=== PATIENT | female | born 1950 | race Caucasian/White ===

== ENCOUNTER → 2024-09-18 | Outpatient (CLI) | payer MEDICARE, SELFPAY ==
--- NOTE | 2024-09-18 12:00 | XR_ITS ---
Examination: CT abdomen and pelvis without contrast. Coronal 3-D reconstructions. Sagittal 2-D reconstructions. Date and time of exam:September 18, 2024 at 1214 hours INDICATIONS: History right flank pain with dysuria beginning 2 weeks ago CTDI: vol (mGy): 6.78 DLP: (mGycm): 296 Technique: Axial images of the abdomen have been obtained, 3 mm slice thickness Intravenous contrast material has not been administered. Low dose protocols were performed. One or more of the following dose reduction techniques were used; automated exposure control, adjustment of the mA and/or KV according to patient size, use of iterative reconstruction technique. Findings: No focal liver or splenic lesions Absent gallbladder No pancreatic mass 19 mm fat-containing left adrenal adenoma Upper pole right renal cyst 30 mm Bilateral multiple 1 to 2 mm renal calculi Severe scarring right kidney No hydronephrosis or ureteral calculi 10 mm right paraumbilical hernia defect No bowel obstruction Normal appendix Colonic diverticulosis, no diverticulitis No bladder mass or bladder calculi Grade 2 anterolisthesis L4 on L5 with advanced degenerative disc disease at this level IMPRESSION: Multiple bilateral nonobstructing renal calculi Severe scarring right kidney No hydronephrosis or ureteral calculi
== END | disposition home or self-care (01) ==
DX: N20.0 Calculus of kidney (principal); N28.89 Other specified disorders of kidney and ureter
CPT/HCPCS: 74176

== ENCOUNTER → 2024-09-30 | Outpatient (CLI) | payer MEDICARE, SELFPAY ==
[2024-09-30 10:11] LABS: Basophils # (Auto) 0.1 Thou/mm3 (0.0-0.2); Basophils % (Auto) 1 % (0-2.5); Eosinophils # (Auto) 0.2 Thou/mm3 (0.0-0.5); Eosinophils % (Auto) 3 % (0-10); Hematocrit 35.8 % (36.0-46.0); Hemoglobin 11.1 g/dL (12.0-16.0); Immature Granulocytes % (Auto) 0 % (0-0); Immature Granulocytes Auto 0.02 Thou/mm3 (0.00-0.00); Lymphocytes # (Auto) 1.1 Thou/mm3 (1.0-4.8); Lymphocytes % (Auto) 19 % (10-50); Mean Corpuscular Hemoglobin 27.2 pg (25.0-35.0); Mean Corpuscular Volume 88 fL (80-100); Monocytes # (Auto) 0.5 Thou/mm3 (0.0-0.8); Monocytes % (Auto) 8 % (0-12); Neutrophils # (Auto) 4.1 Thou/mm3 (1.8-7.7); Neutrophils % (Auto) 69 % (37-80); Nucleated Red Blood Cell % 0 /100 WBC (0); Platelet Count 252 Thou/mm3 (140-440); RDW Standard Deviation 51.4 fL (36.4-46.3); Red Blood Count 4.08 Miln/mm3 (4.00-5.20)
[2024-09-30 10:36] LABS: Alanine Aminotransferase 11 U/L (10-49); Albumin, Serum 4.6 gm/dL (3.4-4.8); Alkaline Phosphatase 94 U/L (46-116); Anion Gap 7 (7-16); Aspartate Amino Transferase 16 U/L (0-34); BUN/Creatinine Ratio 29 Ratio (12-20); Bilirubin,Total 0.4 mg/dL (0.3-1.2); Blood Urea Nitrogen 20 mg/dL (9-23); Calcium 9.5 mg/dL (8.3-10.6); Calcium (Corrected) 9.5 mg/dL (8.5-10.1); Carbon Dioxide 32.1 mMol/L (20.0-31.0); Chloride 103 mMol/L (98-107); Creatinine (Component) 0.7 mg/dL (0.6-1.3); Globulin 2.3 gm/dL (2.3-3.5); Glucose 101 mg/dL (74-106); Osmolality,Calculated 285 (275-295); Potassium 3.8 mMol/L (3.4-5.1); Sodium 142 mMol/L (136-145); Total Protein 6.9 gm/dL (5.7-8.2); eGFR > 60 See Note
== END | disposition home or self-care (01) ==
PROVIDERS: PCP Radiology Radiation Oncology; Referring Provider Radiology Radiation Oncology; Visit Provider Radiology Radiation Oncology
DX: C34.12 Malignant neoplasm of upper lobe, left bronchus or lung (principal)
CPT/HCPCS: 36415; 80053; 85025

== ENCOUNTER 2025-02-03 17:16 | Inpatient (IN) | payer MEDICARE, SELFPAY ==
[2025-02-03] VITALS (11 sets, daily range): BP systolic 119–133; BP diastolic 60–78; PULSE 83–135; RESP 20–38; TEMP 36.6–37; O2SAT 93–100; BMI 24.6; BMI 25.2
--- NOTE | 2025-02-03 17:31 | XR_ITS ---
Examination: AP chest single view Technique one AP portable upright chest single view Exam date and time: February 03, 2025 at 1809 hrs. Indications: Shortness of breath chest pain today. Findings: Mild prominence left ventricle Prominent vascular congestion Perihilar basilar septal edema Consider superimposed pneumonia left upper lobe Prominent osteopenia Impression: Mild CHF Pneumonia left upper lobe
--- NOTE | 2025-02-03 17:31 | EKG_ITS ---
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
--- NOTE | 2025-02-03 17:32 | EDNOTE_ITS ---
ED General RME/HPI General Chief complaint: Shortness of Breath/Dyspnea Stated complaint: SOB Time Seen by Provider: 02/03/25 17:30 Arrival date/time: 02/03/25 17:16 CC: Shortness of breath HPI patient presents to the ER via EMS reports shortness of breath for several days. The patient is 88% on 2 L nasal, which she wears 06/05. Patient is pursed lip breathing speaking in 5-6 word sentences and tachypneic. Denies chest pain Related Data Allergies Allergy/AdvReac Type Severity Reaction Status Date / Time cefaclor Allergy Verified 02/03/25 17:28 prednisone Allergy Verified 02/03/25 17:28 Review of Systems Review of Systems Narrative Review of Systems: GEN: No fever, no chills, no weight loss EYES: No discharge, no visual changes, no pain HEENT: No ear pain, no congestion, no sore throat PULM: + shortness of breath, no cough, no congestion CV: No chest pain, no dyspnea on exertion, no palpitations GI: No nausea, no vomiting, no diarrhea, no pain, no constipation : No frequency, no urgency, no dysuria MUSC/SKEL: No joint pain, no back pain SKIN: No rash PSYCH: No hallucinations, no depression HEME/LYMPH: No easy bleeding or bruising tendencies NEURO: No weakness, no headache ED Exam Narrative Physical exam: [General: Frail, but not deconditioned. In moderate discomfort not in any acute distress Head normocephalic HEENT: Within acceptable limits Neck is supple nontender Chest equal chest rise nontender to palpation Respiratory: Tachypneic, poor inspiratory effort audible expiratory wheezing. Pursed lip breathing. CV: Rate rhythm is regular, tachycardia no murmurs rubs or clicks Abdomen is soft nontender no masses positive bowel sounds all 4 quadrants Back: No CVA tenderness no spinous process tenderness from cervical spine thoracic and lumbar spine Skin: Intact no petechiae rash induration ulceration or crepitus Extremities: Moving all extremity against resistance cap refill less than 2 seconds neurosensory intact Neuro: Awake alert oriented x3 Glascow coma 15 no focal deficits] Course Course Course Narrative: Reassessment of this patient at 1930, the patient continues to be pursed lip breathing after hour-long SVN but states her breathing is easier . Patient continues to be tachycardic in the 1 teens. Given the pneumonia patient started on antibiotics. Patient's case discussed with Dr. [place] resident for Dr. strauss who agrees to accept the patient for admission. Quality Measures none Orders Category Date Time Status Bedside COVID-19 Antigen Test NOW Care 02/03/25 19:41 Active COVID-19 Screening Questionnaire NOW Care 02/03/25 19:48 Completed Decision to Admit X1 Care 02/03/25 19:48 Completed EKG (ED ONLY) *Do not use* NOW Care 02/03/25 17:31 Completed EKG (ED ONLY) *Do not use* NOW Care 02/03/25 19:44 Active EKG (ED Only) Stat Exams 02/03/25 17:31 Draft EKG (ED Only) Stat Exams 02/03/25 19:44 Draft XR chest 1V Stat Exams 02/03/25 17:31 Completed ABG [Arterial Blood Gas] Stat Lab 02/03/25 19:59 Ordered B-Type Natriuretic Peptide Stat Lab 02/03/25 17:59 Completed CBC Stat Lab 02/03/25 17:59 Completed Comprehensive Metabolic Panel Stat Lab 02/03/25 17:59 Completed Drug Screen,Urine Stat Lab 02/03/25 19:37 Received LDH (Lactate Dehydrogenase) Stat Lab 02/03/25 17:59 Completed Magnesium Stat Lab 02/03/25 17:59 Completed Partial Thromboplastin Time Stat Lab 02/03/25 17:59 Completed Prothrombin Time with INR Stat Lab 02/03/25 17:59 Completed Troponin I Stat Lab 02/03/25 17:59 Completed Urinalysis Stat Lab 02/03/25 19:39 Received ALBUTEROL RT 3ml [Proventil Rt 3ml] Med 02/03/25 17:31 Discontinued 10 mg INH X1 ONE Albuterol/Ipratr Rt Katalina [Duoneb Rt Katalina] Med 02/03/25 19:58 Discontinued 3 ml INH X1 ONE Doxycycline Inj [Vibramycin Inj] 100 mg Med 02/03/25 18:41 Discontinued Sodium Chloride 0.9% (Pop) [NS 0.9% mini bag] 100 ml IV X1 Levofloxacin/D5w 750Mg Ivpb [Levaquin Ivpb] Med 02/03/25 19:40 Active 750 mg in 150 ml IV X1 Magnesium Sulfate 2 GM Ivpb [Magnesium Sulfate Ivpb] Med 02/03/25 19:59 Active 2 gm in 50 ml IV X1 MethylPREDNISolone.* [SoluMEDROL Inj] Med 02/03/25 17:31 Discontinued 125 mg IVP X1 ONE BiPAP / CPAP NOW RT 02/03/25 19:59 Active Vital Signs Vital signs: Vital Signs Temperature 98.1 F 02/03/25 17:26 Pulse Rate 83 02/03/25 17:26 Respiratory Rate 20 02/03/25 17:26 Blood Pressure 122/76 02/03/25 17:26 Pulse Oximetry (%) 98 02/03/25 17:26 Oxygen Delivery Method Nasal Cannula 02/03/25 17:26 Oxygen Flow Rate 4 02/03/25 17:26 Discharge Plan Plan Patient Disposition: Other Care w/in Hosp ([facility]SE) Patient condition on transfer: Stable Prescriptions/Referrals Referrals: Marnie Mariee MD [Primary Care Provider] - In 1 week Problem List Clinical Impression: Shortness of breath, COPD exacerbation, Pneumonia, Tachycardia Patient/Caregiver Discharge Instructions Print Language: Lithuanian Stand Alone Forms: Elvira Award Info., Patient Portal Info Letter PA/DIRECTOR OF CHANNEL MARKETING Supervising Physician PA/DIRECTOR OF CHANNEL MARKETING Supervising Physician: Pernell Roldan ENP [facility] EKG EKG Interpretation(s): EKG performed at 1818 shows ventricular rate of 107 QRS of 93 QTc of 371 this is sinus tachycardia as P waves are visible. Repeat EKG at 2009 is 7 creasingly poor quality, ventricular rate of 118 QRS of 95 QTc of 368 cannot differentiate between A-fib and sinus tachycardia secondary to extreme marked artifact in all 12 continuous leads. Labs Lab(s) Interpretation(s): CBC shows leukocytosis of 13.2 and H&H 9.4 and 31.2 platelets of 232. Coags within acceptable limits CMP shows CO2 of 32.7 no other electrolyte imbalances no renal impairment no transaminitis or T. bili elevation Mag 2.0 Troponin is negative BNP is Imaging Imaging Interpretation(s): Chest x-ray showed left base pneumonia with cardiomegaly. Medication Administration(s) Medication Administration History Levofloxacin/Dextrose (Levaquin Ivpb) 750 mg in 150 mls @ 100 mls/hr IV X1 ONE Stop: 02/03/25 21:09 Magnesium Sulfate (Magnesium Sulfate Ivpb) 2 gm in 50 mls @ 25 mls/hr IV X1 ONE Stop: 02/03/25 21:58 Discontinued Medications Albuterol (Albuterol Rt 2.5 Mg/3 Ml Nebu) 10 mg INH X1 ONE Stop: 02/03/25 17:32 Last Admin: 02/03/25 17:49 Dose: 10 mg Documented By: LUCILA Albuterol/Ipratropium (Albuterol/Ipratropium (Duoneb) Rt Katalina 3 Ml Nebu) 3 ml INH X1 ONE Stop: 02/03/25 19:59 Doxycycline Hyclate 100 mg/ (Sodium Chloride) 100 mls @ 100 mls/hr IV X1 ONE Stop: 02/03/25 19:40 Last Infusion: 02/03/25 20:11 Dose: Infused Documented By: Admin: 02/03/25 18:48 Dose: 100 mls/hr Documented By: KENNEY Methylprednisolone Sodium Succinate (Methylprednisolone Sod Succ 62.5 Mg/Ml 2ml Vial) 125 mg IVP X1 ONE Stop: 02/03/25 17:32 Last Admin: 02/03/25 18:05 Dose: 125 mg Documented By: KENNEY
[2025-02-03] MEDS: ALBUTEROL RT 2.5 MG/3 ML NEBU 10 MG INH (17:49)
[2025-02-03] MEDS: MethylPREDNISolone SOD SUCC 62.5 MG/ML 2ML VIAL 125 MG IVP (18:05)
[2025-02-03 18:19] LABS: Basophils # (Auto) 0.1 Thou/mm3 (0.0-0.2); Basophils % (Auto) 1 % (0-2.5); Eosinophils # (Auto) 0.1 Thou/mm3 (0.0-0.5); Eosinophils % (Auto) 1 % (0-10); Hematocrit 31.2 % (36.0-46.0); Hemoglobin 9.4 g/dL (12.0-16.0); Immature Granulocytes % (Auto) 1 % (0-0); Immature Granulocytes Auto 0.14 Thou/mm3 (0.00-0.00); Lymphocytes # (Auto) 0.9 Thou/mm3 (1.0-4.8); Lymphocytes % (Auto) 7 % (10-50); Mean Corpuscular HGB Conc 30.1 g/dl (31.0-37.0); Mean Corpuscular Hemoglobin 25.2 pg (25.0-35.0); Mean Corpuscular Volume 84 fL (80-100); Monocytes # (Auto) 1.1 Thou/mm3 (0.0-0.8); Monocytes % (Auto) 8 % (0-12); Neutrophils # (Auto) 10.9 Thou/mm3 (1.8-7.7); Neutrophils % (Auto) 83 % (37-80); Nucleated Red Blood Cell # 0.02 Thou/mm3 (0.00-0.00); Nucleated Red Blood Cell % 0 /100 WBC (0); Platelet Count 323 Thou/mm3 (140-440); RDW Standard Deviation 50.7 fL (36.4-46.3); Red Blood Count 3.73 Miln/mm3 (4.00-5.20); White Blood Count 13.2 Thou/mm3 (3.6-11.0)
[2025-02-03 18:32] LABS: Partial Thromboplastin Time 29.6 Seconds (22.0-36.0); Prothrombin Time 11.3 Seconds (9.0-12.2)
[2025-02-03 18:41] LABS: Alanine Aminotransferase 12 U/L (10-49); Albumin/Globulin Ratio 1.4 (1.2-2.2); Alkaline Phosphatase 95 U/L (46-116); Anion Gap 7 (7-16); Aspartate Amino Transferase 17 U/L (0-34); BUN/Creatinine Ratio 28 Ratio (12-20); Bilirubin,Total 0.3 mg/dL (0.3-1.2); Blood Urea Nitrogen 17 mg/dL (9-23); Calcium 9.3 mg/dL (8.3-10.6); Calcium (Corrected) 9.3 mg/dL (8.5-10.1); Carbon Dioxide 32.7 mMol/L (20.0-31.0); Chloride 103 mMol/L (98-107); Creatinine (Component) 0.6 mg/dL (0.6-1.3); Estimated Creatinine Clearance 62.2 mL/min (>60); Globulin 2.8 gm/dL (2.3-3.5); Glucose 101 mg/dL (74-106); LDH (Lactate Dehydrogenase) 210 U/L (120-246); Osmolality,Calculated 286 (275-295); Potassium 3.9 mMol/L (3.4-5.1); Sodium 143 mMol/L (136-145); Total Protein 6.8 gm/dL (5.7-8.2); Troponin I < 0.020 ng/mL (0.0-0.045); eGFR > 60 See Note
[2025-02-03] MEDS: DOXYCYCLINE INJ 100 MG in SODIUM CHLORIDE 0.9% (POP) 100 ML IV (18:48)
[2025-02-03 18:49] LABS: B-Type Natriuretic Peptide 83 pg/mL (0-100)
--- NOTE | 2025-02-03 18:57 | PC.LAC ---
PT BROUGHT IN BY EMS FOR INCREASED SOB
--- NOTE | 2025-02-03 19:44 | EKG_ITS ---
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
[2025-02-03 20:02] LABS: Collection Type, Urine Clean Catch
[2025-02-03 20:08] LABS: Bilirubin,Urine Negative (Negative); Blood,Urine Negative (Negative); Clarity,Urine Clear (Clear/Hazy); Color,Urine Lt-Yellow (Lt Yel-Yel); Glucose, Urine Negative (Negative); Ketones,Urine 1+ (Negative); Leukocyte Esterase,Urine Negative (Negative); Nitrite,Urine Negative (Negative); Protein,Urine Negative (Neg - Trace); RBC,Urine 2 /hpf (0-3); Specific Gravity,Urine 1.016 (1.001-1.035); Squamous Epithelial Cell,Urine 1 /hpf (0-5); Urobilinogen,Urine Negative mg/dL (0.0-1.0); WBC,Urine 4 /hpf (0-5)
--- NOTE | 2025-02-03 20:21 | PC.NURSE ---
PER. ADMIT PROVIDER DR. MATOS PT CAN TAKE PRAMIPEXOLE HOME MED NOW UNTIL NEW ORDERS IN FOR RESTLESS LEG.
[2025-02-03] MEDS: LEVOFLOXACIN/D5W 750MG IVPB 750 MG/150 ML BAG 100 MG IV (20:24)
[2025-02-03] MEDS: Magnesium Sulfate 2 GM Ivpb 2 GM/50 ML BAG IV (20:24)
--- NOTE | 2025-02-03 20:36 | PC.NURSE ---
SEPSIS ALERT CALLED [phone]
[2025-02-03 20:44] LABS: Base Excess 4 (-3-3); HCO3 30 mEq/L (20-26); Inspired O2, VO2 Liters 3 L/min; Inspired Oxygen, FIO2 21 %; O2 Saturation 99 % (91-98); PCO2 56 mmHg (32.0-48.0); PO2 101 mmHg (83-108); pH, Arterial 7.34 (7.35-7.45)
[2025-02-03] MEDS: GABAPENTIN 100 MG CAPSULE PO (20:45)
[2025-02-03] MEDS: ALBUTEROL/IPRATROPIUM (Duoneb) RT SOL 3 ML NEBU INH ×2 (20:52→22:44)
[2025-02-03 20:54] LABS: Allen Test Performed/OK; Puncture Site Right Radial
--- NOTE | 2025-02-03 21:04 | ESHP_ITS ---
Documentation for date of: 02/03/25 [facility] History of Present Illness History of present illness: The patient is a 75-year-old female with significant past medical history of COPD on 2 L home oxygen, restless leg syndrome, chronic iron deficiency anemia was brought in by ambulance with chief complaint of SOB that has been worsening for several days. The patient denied any recent sick contacts, and was able to speak only 4-5 words at a time with pursed lip. She denied any headache, nausea or vomiting, chest pain, abdominal pain, any changes in bowel or bladder habit, or any leg swelling. She also denied any fever or chills, nausea or vomiting. As per the [id number] at bedside, reported that the patient's trilogy dose was increased last year, but has been again decreased to the previous dose for past couple of months, after which she has been having difficulty breathing. In the ED her initial vitals were stable saturating 98% on 4 L NC, later her heart rate increased to 101, RR 28 on 3 L NC. White count was 13.2, and sepsis alert was called. Hemoglobin 9.4, MCV 84, ABG revealed pH 7.34, [id number], bicarb 30 with chemistry panel revealing bicarb of 32.7, lactic acid 1.3, magnesium 2.0, Pro-Clay[place] negative, UA negative and U tox was negative. EKG revealed A-fib with RVR, but able to figure out some P waves on V4, and was likely artifact for A-fib. Chest x-ray was significant for pneumonia on left upper lobe with mild CHF. PMH: As mentioned above SHX: Unremarkable Social history: Denies current use of tobacco, alcohol or illicit drug use Medications: Pramipexole, others to be reconciled Allergies: Cefaclor and prednisone The patient was started on albuterol inhalation, given methylprednisone 125 Mg IV x 1, doxycycline 100 Mg x 1, and admitted to telemetry unit for further management of acute on chronic hypoxic respiratory failure secondary to COPD exacerbation secondary to community-acquired pneumonia. Review of Systems Review of Systems Systems Reviewed: All systems reviewed, normal except as documented Exam Vital Signs Temp Pulse Resp BP Pulse Ox O2 Del Method O2 Flow Rate 98.6 F 113 H 27 H 120/60 94 L Room Air 3 02/03/25 20:00 02/03/25 20:00 02/03/25 20:00 02/03/25 20:00 02/03/25 20:00 02/03/25 20:00 02/03/25 20:00 Narrative Exam General: Elderly, cooperative female, no acute distress, Alert and Oriented x 3 HEENT: Mildly dry mucous membranes, oropharynx clear Neck: Supple, No masses, No JVD CVS: Tachycardic, No murmurs, rubs or gallops Lungs: Bilateral wheezing throughout the lung field along with rhonchi, no crackles, saturating 94% on 3 L NC Abd: Soft, NT/ND, +BS, no organomegaly Ext: No edema, warm and well perfused Skin: No rash Psych: Mildly anxious Results: Labs 02/03/25 17:59 02/03/25 17:59 Labs: Short CBC 02/03/25 Range/Units 17:59 WBC 13.2 H (3.6-11.0) Thou/mm3 Hgb 9.4 L (12.0-16.0) g/dL Hct 31.2 L (36.0-46.0) % Plt Count 323 (140-440) Thou/mm3 BMP 02/03/25 17:59 Sodium 143 Potassium 3.9 Chloride 103 Carbon Dioxide 32.7 H BUN 17 Creatinine 0.6 Glucose 101 Calcium 9.3 Cardiac Enzymes 02/03/25 Range/Units 17:59 Troponin I < 0.020 (0.0-0.045) ng/mL Liver Function 02/03/25 Range/Units 17:59 Total Bilirubin 0.3 (0.3-1.2) mg/dL AST 17 (0-34) U/L ALT 12 (10-49) U/L Alkaline Phosphatase 95 (46-116) U/L Albumin 4.0 (3.4-4.8) gm/dL Urine 02/03/25 Range/Units 19:39 Urine Color Lt-Yellow (Lt Yel-Yel) Urine Clarity Clear (Clear/Hazy) Urine pH 6.0 (5.0-7.0) Ur Specific [place] 1.016 (1.001-1.035) Urine Protein Negative (Neg - Trace) Urine Glucose (UA) Negative (Negative) ABG Interpretation ABG results: 02/03/25 20:38 ABG pH 7.34 L ABG pCO2 56 H ABG pO2 101 ABG HCO3 30 H ABG O2 Saturation 99 H ABG Base Excess 4 H Quality Measures Quality Measures none Advance care planning discussed with:: patient and other (Daughter in law) Medications Home Medications and Allergies Allergies Allergy/AdvReac Type Severity Reaction Status Date / Time cefaclor Allergy Verified 02/03/25 17:28 prednisone Allergy Verified 02/03/25 17:28 Visit Medications Acetaminophen (Acetaminophen 325 Mg Tablet) 650 mg PO Q6H PRN PRN Reason: Fever >101.5 Stop: 03/05/25 20:35 Acetaminophen (Acetaminophen 325 Mg Tablet) 650 mg PO Q6H PRN PRN Reason: PAIN SCALE 1-3 (mild Stop: 03/05/25 20:35 Hydrocodone Bitart/Acetaminophen (Hydrocodone/Apap 5/325 Tablet) 1 tab PO Q4HR PRN PRN Reason: PAIN SCALE 4-6 (Moderate Stop: 02/08/25 20:35 Albuterol/Ipratropium (Albuterol/Ipratropium (Duoneb) Rt Katalina 3 Ml Nebu) 3 ml INH Q4HRRT CHANTE Stop: 03/05/25 22:59 Heparin Sodium (Porcine) (Heparin Sod Inj 5000 Unit/Ml Vial) 5,000 unit SC Q8HR CHANTE Stop: 02/17/25 21:59 Levofloxacin/Dextrose (Levaquin Ivpb) 750 mg in 150 mls @ 100 mls/hr IV X1 ONE Stop: 02/03/25 21:09 Last Admin: 02/03/25 20:24 Dose: 100 mls/hr Magnesium Sulfate (Magnesium Sulfate Ivpb) 2 gm in 50 mls @ 25 mls/hr IV X1 ONE Stop: 02/03/25 21:58 Last Admin: 02/03/25 20:24 Dose: 25 mls/hr Potassium Chloride (Kcl Ivpb) 10 meq in 100 mls @ 100 mls/hr IV Q1H CHANTE Stop: 02/03/25 22:58 Methylprednisolone Sodium Succinate (Methylprednisolone Sod Succ 40 Mg Vial) 40 mg IVP QDAY CHANTE Stop: 02/11/25 08:59 Ondansetron HCl (Ondansetron Inj 2 Mg/Ml Inj 2 Ml) 4 mg IV Q6H PRN; Protocol PRN Reason: NAUSEA OR VOMITING Stop: 03/05/25 20:35 Discontinued Medications Albuterol (Albuterol Rt 2.5 Mg/3 Ml Nebu) 10 mg INH X1 ONE Stop: 02/03/25 17:32 Last Admin: 02/03/25 17:49 Dose: 10 mg Albuterol/Ipratropium (Albuterol/Ipratropium (Duoneb) Rt Katalina 3 Ml Nebu) 3 ml INH X1 ONE Stop: 02/03/25 19:59 Capsaicin (Capsaicin Cr 60 Gm Tube) 0 gm TOP Q6H CHANTE Stop: 03/05/25 20:49 Gabapentin (Gabapentin 100 Mg Capsule) 100 mg PO X1 ONE Stop: 02/03/25 20:33 Last Admin: 02/03/25 20:45 Dose: 100 mg Doxycycline Hyclate 100 mg/ (Sodium Chloride) 100 mls @ 100 mls/hr IV X1 ONE Stop: 02/03/25 19:40 Last Infusion: 02/03/25 20:11 Dose: Infused Methylprednisolone Sodium Succinate (Methylprednisolone Sod Succ 62.5 Mg/Ml 2ml Vial) 125 mg IVP X1 ONE Stop: 02/03/25 17:32 Last Admin: 02/03/25 18:05 Dose: 125 mg Sodium Chloride (Sodium Chloride Rt 10% 15 Ml Nebu) 5 ml INH X1 ONE Stop: 02/03/25 20:37 Assessment & Plan Plan The patient is a 75-year-old female with significant past medical history of COPD on 2 L home oxygen, restless leg syndrome, chronic iron deficiency anemia was brought in by ambulance with chief complaint of SOB that has been worsening for several days. The patient is admitted to telemetry unit for further management of acute on chronic hypoxic respiratory failure secondary to COPD exacerbation secondary to community-acquired pneumonia. #Acute on chronic hypoxic hypercapnic respiratory failure 2/2 #COPD exacerbation 2/2 #Community-acquired pneumonia #3/4 SIRS positive Patient presented with chief complaint of SOB that has been worsening for several days, was able to speak only 4-5 words sentence with pursed lip, chest x-ray was significant for left upper lobe pneumonia. Initially requiring 4 L NC for proper saturation. Heart rate increased to 101, RR 28 and white count 13.2. Lactic acid was negative, and no endorgan failure observed. The patient was started on albuterol inhalation, given methylprednisone 125 Mg IV x 1, doxycycline 100 Mg x 1 in the ED - Admitted to telemetry unit - Started on levofloxacin 750 Mg IV daily - Started on DuoNeb every 4 hourly - Started on methylprednisone 40 Mg IV daily - Blood, urine and sputum culture ordered - Received 30 cc/kg bolus fluid - Daily a.m. labs for CBC, CMP and electrolytes #Respiratory acidosis partially compensated by metabolic alkalosis ABG revealed pH of 7.34, pCO2 56 bicarb 32.7 on CHEM panel - Continue to treat underlying COPD exacerbation - May consider ordering ABG in the a.m. if patient is not improving. #Restless leg syndrome #Microcytic anemia, likely iron deficiency anemia Patient is on home medication pramipexole, reconcile home medications - Received 1 dose of p.o. pramipexole home dose - Ordered gabapentin 100 Mg x 1, may consider scheduling it if it helps - Ordered iron panel, ferritin, reticulocyte count, peripheral smear, vitamin B12 and folate level. Health maintenance: Dispo: Patient admitted to telemetry unit for further management on acute on chronic hypoxic respiratory failure secondary to COPD exacerbation secondary to community-acquired pneumonia Diet: N.p.o. for now DVT prophylaxis: Subcu heparin CODE STATUS: Full code The patient's management plan was discussed with my attending physician MD Nato Cobb MD, PGY2 Attending Provider Attestation/Addendum I attest that I was physically present for the evaluation, physical examination, lab and imaging review of the patient with the residents. I discussed the case with the residents and agree with the findings and plans of care as documented above. Patient is a 75 years old female with past medical history of COPD on 2 L home oxygen, restless leg syndrome, chronic DEANDRE who presented to the ED with complaint of shortness of breath for several days. In the ED, patient was tachycardic, tachypneic, saturating around high 90s on 3 L nasal cannula. Lab results show WBC of 13.2, hemoglobin 9.4, lactic acid 1.3, HCO3 32.7. ABG was obtained which showed pH of 7.34, pCO2 56. Chest x-ray was obtained, shows pneumonia of left upper lobe and mild vascular congestion. EKG was obtained, concerning for MAT/A-fib. We will admit the patient for management of acute on chronic hypoxic hypercapnic respiratory failure and sepsis secondary to pneumonia. Started on IV levofloxacin, DuoNeb, steroids. Patient received 30 cc/kg fluid bolus in the ED. We will obtain cultures. Patient was also having anxiety, restless leg syndrome, Resumed her home pramipexole and started on gabapentin. Surjit Saldaña MD
--- NOTE | 2025-02-03 21:13 | PC.NURSE ---
CALLED PT K IS 3.9 HE ADVISED TO STILL GIVE IV K
[2025-02-03 21:23] LABS: Amphetamine/Methamp Scrn,U Negative (Negative); Barbiturate Screen,Urine Negative (Negative); Benzodiazepines Screen,Urine Negative (Negative); Benzoylecgonine Screen, Ur Negative (Negative); Fentanyl Screen,Urine Negative (Negative); Opiate Screen,Urine Negative (Negative); THC Screen,Urine Negative (Negative)
--- NOTE | 2025-02-03 21:36 | PC.NURSE ---
CALLED HOSPITALIST PT NPO WANTING ICE PT ALSO WANTING SOMETHING FOR ANXIETY THE WILL VERIFY WHY PT NPO AND OUT ORDERS FOR MEDICATION
[2025-02-03 21:46] LABS: Lactate (Lactic Acid) 1.3 mMol/L (0.4-2.0)
[2025-02-03] MEDS: HEPARIN SOD INJ 5000 UNIT/ML VIAL SC (22:02)
[2025-02-03] MEDS: RINGERS LACTATED 1755 ML IV (22:04)
[2025-02-03] MEDS: POTASSIUM CHL 10 mEq IVPB 10 MEQ/100 ML BAG 100 MEQ IV (22:04)
[2025-02-03] MEDS: hydrOXYzine HCL 25 MG TABLET 12.5 MG PO (22:19)
[2025-02-03] MEDS: POTASSIUM CHL 10 mEq IVPB 10 MEQ/100 ML BAG 75 MEQ IV (23:25)
[2025-02-04] VITALS (14 sets, daily range): BP systolic 102–124; BP diastolic 56–84; PULSE 80–115; RESP 18–34; TEMP 36.3–36.8; O2SAT 93–100; BMI 25.2
--- NOTE | 2025-02-04 01:48 | PC.NURSE ---
CALLED SON TO LET KNOW PT GOING UPSTAIRS TO [id number]
[2025-02-04] MEDS: ALBUTEROL/IPRATROPIUM (Duoneb) RT SOL 3 ML NEBU INH ×6 (03:22→22:24)
[2025-02-04 05:25] LABS: Basophils % (Auto) 1 % (0-2.5); Eosinophils % (Auto) 0 % (0-10); Immature Granulocytes % (Auto) 2 % (0-0); Immature Granulocytes Auto 0.17 Thou/mm3 (0.00-0.00); Immature Reticulocyte Fraction 29.6 % (3.0-15.9); Lymphocytes # (Auto) 0.3 Thou/mm3 (1.0-4.8); Lymphocytes % (Auto) 4 % (10-50); Mean Corpuscular HGB Conc 29.3 g/dl (31.0-37.0); Mean Corpuscular Hemoglobin 25.5 pg (25.0-35.0); Mean Corpuscular Volume 87 fL (80-100); Monocytes # (Auto) 0.2 Thou/mm3 (0.0-0.8); Monocytes % (Auto) 2 % (0-12); Neutrophils % (Auto) 92 % (37-80); Nucleated Red Blood Cell # 0.02 Thou/mm3 (0.00-0.00); Nucleated Red Blood Cell % 0 /100 WBC (0); Platelet Count 261 Thou/mm3 (140-440); Red Blood Count 3.22 Miln/mm3 (4.00-5.20); Reticulocyte % (Auto) 1.6 % (0.5-1.5); Reticulocyte Absolute Auto 50.9 Biln/L (25.0-75.0); Reticulocyte Hgb Content 20.1 pg (28.0-35.0); White Blood Count 8.7 Thou/mm3 (3.6-11.0)
[2025-02-04 05:52] LABS: Hemoglobin 8.2 g/dL (12.0-16.0)
[2025-02-04 05:57] LABS: Vitamin B12 1706 pg/mL (211-911)
[2025-02-04 05:58] LABS: Alanine Aminotransferase 10 U/L (10-49); Albumin, Serum 3.5 gm/dL (3.4-4.8); Albumin/Globulin Ratio 1.4 (1.2-2.2); Alkaline Phosphatase 84 U/L (46-116); Anion Gap 6 (7-16); Aspartate Amino Transferase 14 U/L (0-34); BUN/Creatinine Ratio 24 Ratio (12-20); Bilirubin,Total 0.2 mg/dL (0.3-1.2); Blood Urea Nitrogen 12 mg/dL (9-23); Calcium 8.6 mg/dL (8.3-10.6); Carbon Dioxide 31.9 mMol/L (20.0-31.0); Cardiac Risk Estimate 2.4 RATIO (3.7-5.6); Chloride 105 mMol/L (98-107); Cholesterol 135 mg/dL (132-200); Creatinine (Component) 0.5 mg/dL (0.6-1.3); Estimated Creatinine Clearance 75.4 mL/min (>60); Globulin 2.5 gm/dL (2.3-3.5); Glucose 137 mg/dL (74-106); HDL Cholesterol 57 mg/dL (40-60); LDL Cholesterol,Calculated 65 mg/dL (0-130); Magnesium 1.9 mg/dL (1.6-2.6); Osmolality,Calculated 286 (275-295); Phosphorous 3.3 mg/dL (2.4-5.1); Potassium 4.6 mMol/L (3.4-5.1); Sodium 143 mMol/L (136-145); Thyroid Stimulating Hormone 0.12 uIU/mL (0.55-4.78); Triglycerides 64 mg/dL (30-150); eGFR > 60 See Note
[2025-02-04 05:59] LABS: Ferritin 43 ng/mL (7.3-270.7); Iron 20 mcg/dL (50-170); Percent Iron Saturation 7 % (20-55); Total Iron Binding Capacity 275 mcg/dL (250-425); Unsaturated Iron Binding 255 (225-295)
[2025-02-04] MEDS: LORazepam 0.5 MG TABLET 1 MG PO (08:04)
[2025-02-04] MEDS: PRAMIPEXOLE 0.25 MG TABLET 0.5 MG PO ×2 (08:04→21:01)
[2025-02-04 09:31] LABS: Path Review Blood Smear Sent to Pathologist
[2025-02-04 09:54] LABS: Free T4 (Free Thyroxine) 1.44 ng/dL (0.89-1.76)
--- NOTE | 2025-02-04 10:29 | PC.SS ---
SS met with patient in ICU. Patient is alert/oriented. Patient was able to verify demographics. Patient states she lives alone. Her grandson stays with her on weekends. Patient was admitted for SOB. Patient states she's on 02 at home ([facility]) at 2L continuous. She also possesses a CPAP machine. Patient states she's independent with ADL's. No walker/wheelchair for ambulation. Patient has hx: breast ca and lung ca. She follows at Cancer treatment in [place] yearly. No active treatments. Patient's family transports to appointments long distance. Patient states she still drives herself in town. Patient was following her PCP at [facility] and was seeing Dr. Mariee. Last appt. was last week. Pharmacy: [facility]. Friend medical decision maker: Son, Antonio Solorio, . Patient d/c plan is to return home. Family will provide transportation upon discharge.
--- NOTE | 2025-02-04 12:45 | ESPR_ITS ---
<Statement entered by Darlin Omer MD - 02/09/25 13:45> I reviewed above note and agree with findings and plans. I have also personally examined the patient with medicine team and went over assessment and plan with medical team including agribusiness internship and resident physician. <Statement entered by Jayy Enciso MD - 02/06/25 14:53> Senior Resident Attestation: I supervised/discussed management plan with agribusiness internship physician Dr. Stout, and was involved in the care of this patient. I personally saw and examined the patient and discussed the assessment and plan with the entire medicine team, including my attending. I agree with the assessment and plan as documented. Patient is on 5L nasal cannula, minimal wheezing noticed. Will continue breathing treatments, IV antibiotics and steroids, possible discharge tomorrow. Patient's care was discussed with attending physician, Dr. Omer. Jayy Enciso MD PGY-2. Documentation for date of: 02/04/25 Subjective Subjective Interval history: Patient is a overnight admit. Patient seen and examined at bedside this morning. Patient is comfortably resting saturating 97% on 5 L oxygen via nasal cannula. Patient states that she has known history of COPD and uses 2 L oxygen at home but very gets very short of breath when she is speaking she is unable to complete sentences without having to pause several times due to shortness of breath. Patient states although she quit smoking many years ago she was always exposed to secondhand smoking through her who smoked inside the house. Patient states that she does not have any cardiac history and her doctor recently told her her heart is as good as someone very young. Patient believes that her symptoms are exacerbated because there was a recent change in her medication. Her doctor had increased Trelegy dose which patient did not really try to tolerate that well and was decreased back to her previous dose however she had exacerbated symptoms after that. Patient denies any chest pain, palpitations, dizziness or syncopal episodes. Labs are significant for hemoglobin 8.2, hematocrit 28.0, and iron panel was consistent with iron deficiency anemia. Patient has no other complaints. Exam Vital Signs Temp Pulse Resp BP Pulse Ox O2 Del Method O2 Flow Rate 97.4 F 82 27 H 102/56 L 100 Nasal Cannula 3 02/04/25 08:00 02/04/25 10:11 02/04/25 10:11 02/04/25 08:00 02/04/25 10:11 02/04/25 08:00 02/04/25 10:11 Narrative Exam GENERAL: A&Ox3 . Awake, pleasant, cooperative elderly female does not appear to be in distress however she is very short of breath when speaking NEURO: no focal neurological deficits HEENT: Atraumatic, Normocephalic. mucous membranes moist. Eyes open, symmetrical, & clear HEART: Normal Heart Sounds LUNGS: rhonci heard bilaterally with no wheezing or crackles. ABDOMEN: soft, non-distended, non-tender, bowel sounds heard, no guarding or rebound tenderness SKIN: No Rash or ecchymoses EXTREMITIES: No edema, tenderness, able to move all 4 extremities, pedal pulses palpated Objective Labs 02/05/25 05:05 02/05/25 05:05 Labs: Laboratory Results - last 24 hr 02/03/25 02/03/25 02/03/25 17:59 19:37 19:39 WBC 13.2 H RBC 3.73 L Hgb 9.4 L Hct 31.2 L MCV 84 MCH 25.2 MCHC 30.1 L RDW Std Deviation 50.7 H Plt Count 323 Neut % (Auto) 83 H Lymph % (Auto) 7 L Brooke % (Auto) 8 Eos % (Auto) 1 Baso % (Auto) 1 Neut # (Auto) 10.9 H Lymph # (Auto) 0.9 L Brooke # (Auto) 1.1 H Eos # (Auto) 0.1 Baso # (Auto) 0.1 Immature Gran # (Auto) 0.14 H Absolute Nucleated RBC 0.02 H Immature Gran % 1 H Nucleated RBC % 0 Smear Path Review Retic Count (auto) Absolute Retic Immature Retic Fraction Retic Hgb Content CHr PT 11.3 INR 1.0 APTT 29.6 Puncture Site ABG pH ABG pCO2 ABG pO2 ABG HCO3 ABG O2 Saturation ABG Base Excess Oxygen Liter Flow FiO2 Sodium 143 Potassium 3.9 Chloride 103 Carbon Dioxide 32.7 H Anion Gap 7 BUN 17 Creatinine 0.6 Estim Creat Clear Calc 62.2 eGFR > 60 BUN/Creatinine Ratio 28 H Glucose 101 Calculated Osmolality 286 Lactic Acid Calcium 9.3 Corrected Calcium 9.3 Phosphorus Magnesium 2.0 Iron TIBC Iron Saturation Unsat Iron Binding Ferritin Total Bilirubin 0.3 AST 17 ALT 12 Alkaline Phosphatase 95 Lactate Dehydrogenase 210 Troponin I < 0.020 B-Natriuretic Peptide 83 Total Protein 6.8 Albumin 4.0 Globulin 2.8 Albumin/Globulin Ratio 1.4 Triglycerides Cholesterol LDL Cholesterol, Calc HDL Cholesterol Cholesterol/HDL Ratio Vitamin B12 Folate Procalcitonin 0.20 TSH Free T4 Ur Collection Type Clean Catch Urine Color Lt-Yellow Urine Clarity Clear Urine pH 6.0 Ur Specific [place] 1.016 Urine Protein Negative Urine Glucose (UA) Negative Urine Ketones 1+ A Urine Blood Negative Urine Nitrite Negative Urine Bilirubin Negative Urine Urobilinogen (Auto) Negative Ur Leukocyte Esterase Negative Urine RBC 2 Urine WBC 4 Ur Squamous Epith Cells 1 Urine Bacteria None Urine Opiates Screen Negative Urine Fentanyl Screen Negative Ur Barbiturates Screen Negative U Amphetamin/Meth Scrn Negative U Benzodiazepines Scrn Negative U Cocaine Metab Screen Negative U Marijuana (THC) Screen Negative 02/03/25 02/03/25 02/04/25 20:38 21:17 04:23 WBC 8.7 RBC 3.22 L Hgb 8.2 L Hct 28.0 L MCV 87 MCH 25.5 MCHC 29.3 L RDW Std Deviation 52.0 H Plt Count 261 D Neut % (Auto) 92 H Lymph % (Auto) 4 L Brooke % (Auto) 2 Eos % (Auto) 0 Baso % (Auto) 1 Neut # (Auto) 8.0 H Lymph # (Auto) 0.3 L [place] # (Auto) 0.2 Eos # (Auto) 0.0 Baso # (Auto) 0.0 Immature Gran # (Auto) 0.17 H Absolute Nucleated RBC 0.02 H Immature Gran % 2 H Nucleated RBC % 0 Smear Path Review Sent to Pathologist Retic Count (auto) 1.6 H Absolute Retic 50.9 Immature Retic Fraction 29.6 H Retic Hgb Content CHr 20.1 L PT INR APTT Puncture Site Right Radial ABG pH 7.34 L ABG pCO2 56 H ABG pO2 101 ABG HCO3 30 H ABG O2 Saturation 99 H ABG Base Excess 4 H Oxygen Liter Flow 3 FiO2 21 Sodium 143 Potassium 4.6 D Chloride 105 Carbon Dioxide 31.9 H Anion Gap 6 L BUN 12 Creatinine 0.5 L Estim Creat Clear Calc 75.4 eGFR > 60 BUN/Creatinine Ratio 24 H Glucose 137 H Calculated Osmolality 286 Lactic Acid 1.3 Calcium 8.6 Corrected Calcium 9.0 Phosphorus 3.3 Magnesium 1.9 Iron 20 L TIBC 275 Iron Saturation 7 L Unsat Iron Binding 255 Ferritin 43 Total Bilirubin 0.2 L AST 14 ALT 10 Alkaline Phosphatase 84 Lactate Dehydrogenase Troponin I B-Natriuretic Peptide Total Protein 6.0 Albumin 3.5 D Globulin 2.5 Albumin/Globulin Ratio 1.4 Triglycerides 64 Cholesterol 135 LDL Cholesterol, Calc 65 HDL Cholesterol 57 Cholesterol/HDL Ratio 2.4 L Vitamin B12 1706 H Folate 8.50 Procalcitonin Cancelled TSH 0.12 L Free T4 1.44 Ur Collection Type Urine Color Urine Clarity Urine pH Ur Specific [place] Urine Protein Urine Glucose (UA) Urine Ketones Urine Blood Urine Nitrite Urine Bilirubin Urine Urobilinogen (Auto) Ur Leukocyte Esterase Urine RBC Urine WBC Ur Squamous Epith Cells Urine Bacteria Urine Opiates Screen Urine Fentanyl Screen Ur Barbiturates Screen U Amphetamin/Meth Scrn U Benzodiazepines Scrn U Cocaine Metab Screen U Marijuana (THC) Screen ABG Interpretation ABG results: 02/03/25 20:38 ABG pH 7.34 L ABG pCO2 56 H ABG pO2 101 ABG HCO3 30 H ABG O2 Saturation 99 H ABG Base Excess 4 H Quality Measures Quality Measures none Advance care planning discussed with:: patient Assessment & Plan Assessment Current Active Medications: Generic Name Dose Route Start Last Admin Trade Name Freq PRN Reason Stop Dose Admin Acetaminophen 650 mg 02/03/25 20:36 Acetaminophen 325 Mg Tablet PO 03/05/25 20:35 Q6H PRN Fever >101.5 Acetaminophen 650 mg 02/03/25 20:36 Acetaminophen 325 Mg Tablet PO 03/05/25 20:35 Q6H PRN PAIN SCALE 1-3 (mild Hydrocodone Bitart/Acetaminophen 1 tab 02/03/25 20:36 Hydrocodone/Apap 5/325 Tablet PO 02/08/25 20:35 Q4HR PRN PAIN SCALE 4-6 (Moderate Albuterol/Ipratropium 3 ml 02/03/25 23:00 02/04/25 10:11 Albuterol/Ipratropium (Duoneb) Rt Katalina 3 Ml Nebu INH 03/05/25 22:59 3 ml Q4HRRT CHANTE Administration Heparin Sodium (Porcine) 5,000 unit 02/03/25 22:00 02/04/25 05:04 Heparin Sod Inj 5000 Unit/Ml Vial SC 02/17/25 21:59 Not Given Q8HR CHANTE Methylprednisolone Sodium Succinate 40 mg 02/04/25 09:00 02/04/25 08:05 Methylprednisolone Sod Succ 40 Mg Vial IVP 02/11/25 08:59 40 mg QDAY CHANTE Administration Ondansetron HCl 4 mg 02/03/25 20:36 Ondansetron Inj 2 Mg/Ml Inj 2 Ml IV 03/05/25 20:35 Q6H PRN NAUSEA OR VOMITING Protocol Pramipexole Dihydrochloride 0.5 mg 02/04/25 09:00 02/04/25 08:04 Pramipexole 0.25 Mg Tablet PO 03/06/25 08:59 0.5 mg BID CHANTE Administration Plan Ms. Solorio is a 75-year-old female with significant past medical history of COPD on 2 L home oxygen, restless leg syndrome, chronic iron deficiency anemia was brought in by ambulance with chief complaint of SOB that has been worsening for several days. The patient is admitted to telemetry unit for further management of acute on chronic hypoxic respiratory failure secondary to COPD exacerbation secondary to community-acquired pneumonia. #Acute on chronic hypoxic respiratory failure 2/2 #COPD exacerbation in the setting of #Community-acquired pneumonia #3/4 SIRS positive -Patient presented with chief complaint of SOB that has been worsening for several days, was able to speak only 4-5 words sentence with pursed lip, initially requiring 4 L NC for proper saturation. Heart rate increased to 101, RR 28 and white count 13.2. Lactic acid was negative, and no endorgan failure observed. -Chest x-ray was significant for left upper lobe pneumonia. -The patient was started on albuterol inhalation, given methylprednisone 125 Mg IV x 1, doxycycline 100 Mg x 1 in the ED Plan: - Admitted to telemetry unit - Started on levofloxacin 750 Mg IV daily 02/04- - Started on DuoNeb every 4 hourly - Started on methylprednisone 40 Mg IV daily - Blood and urine cultures pending - Received 30 cc/kg bolus fluid in the ED -CTA ordered to rule PE due to Pt's persistent SOB without evidence of fluid overload - Daily a.m. labs for CBC, CMP and electrolytes #Respiratory acidosis partially compensated by metabolic alkalosis- improving ABG revealed pH of 7.34, pCO2 56 bicarb 32.7 on CHEM panel - Continue to treat underlying COPD exacerbation - May repeat ABG in the a.m. if patient is not improving. #Restless leg syndrome #Microcytic anemia, likely iron deficiency anemia -Resumed home pramipexole - Ordered iron panel consistent with iron defiiency anemia, reticulocyte count, peripheral smear, vitamin B12 (1706)and folate level (WNL). -TSH 0.12 and FT4 1.44 Health maintenance: Dispo: Patient admitted to telemetry unit for further management on acute on chronic hypoxic respiratory failure secondary to COPD exacerbation secondary to community-acquired pneumonia Diet: regular diet DVT prophylaxis: Subcu heparin CODE STATUS: Full code Assessment and plan discussed with my senior resident Dr. Smith & attending physician Dr. Kan Stout (PGY-1)- Internal medicine resident
[2025-02-04] MEDS: HEPARIN SOD INJ 5000 UNIT/ML VIAL SC ×2 (13:53→21:04)
[2025-02-04] MEDS: LEVOFLOXACIN/D5W 750MG IVPB 750 MG/150 ML BAG 100 MG IV (14:02)
[2025-02-04] MEDS: LORazepam 2 MG/ML VIAL 1 MG IVP (15:48)
--- NOTE | 2025-02-04 15:58 | XR_ITS ---
Examination: CTA chest with intravenous contrast 2-D reconstructions 3-D reconstructions, vascular Date and time of exam: February 04, 2025 1601 hours Indications: Chest pain shortness of breath today, clinical diagnosis pulmonary embolus CTDI: vol (mGy) 6.48 DLP: (mGycm) 199 Technique: Multiple axial sections of the thorax have been obtained. 3 mm slice thickness, from below the hemidiaphragms to above the apices of the lungs. Mediastinal and lung density settings have been obtained. 2-D sagittal and coronal reconstructions. 3-D angiographic renderings, 3-D volume renderings, 3D post processing, vascular maximum intensity projections obtained. Contrast administered is 67 cc Isovue-[id number]. Low dose protocols were performed. One or more of the following dose reduction techniques were used; automated exposure control, adjustment of the mA and/or KV according to patient size, use of iterative reconstruction technique. Findings: No thoracic aortic aneurysm dilatation or dissection No pulmonary artery filling defects Prominent vascular congestion with mild septal pulmonary edema Pneumonia in the left upper lobe Mildly dilated bronchi in the lower lobes No visualized liver or splenic lesion Absent gallbladder Common hepatic duct 14 mm No pancreatic mass No hydronephrosis Prominent osteopenia with diffuse moderate to advanced thoracic degenerative disc disease Impression: Negative for pulmonary artery emboli Mild CHF Pneumonia left upper lobe, follow-up chest imaging recommended to document clearing Mild bibasilar bronchiectasis Dilated common hepatic duct, recommend hepatobiliary sonography follow-up
--- NOTE | 2025-02-04 16:21 | PC.SS ---
Rounding Note: Patient receiving antibiotics and steroids.
--- NOTE | 2025-02-04 16:32 | ESPR_ITS ---
Addendum Progress Note Addendum Date of report being addended: 02/04/25 Narrative: I saw the patient with the PGY 1 and PGY 3 resident I agree on their assessment and plan Patient was admitted because of bradycardia She was transferred to the floor as she required dopamine Cardiology saw the patient and decided that this was due to combination of heart failure and hypothermia than a true need for pacemaker Patient was placed on dopamine and now she is at a low dose Cardiology agreed to transfer the patient to the floor once she requires less than 4 mics per KG per minute Patient has diuresed very well overnight Use albumin and Lasix to diurese CBC was unremarkable Coagulations normal Blood gas unremarkable Chemistry is unremarkable No evidence of sepsis Patient is off the Aricept and off a beta-chang CBC and chemistry unremarkableI saw the patient with the PGY 1 and PGY 3 re sident I agree on their assessment and plan Patient was admitted because of bradycardia She was transferred to the floor as she required dopamine Cardiology saw the patient and decided that this was due to combination of heart failure and hypothermia than a true need for pacemaker Patient was placed on dopamine and now she is at a low dose Cardiology agreed to transfer the patient to the floor once she requires less than 4 mics per KG per minute Patient has diuresed very well overnight Use albumin and Lasix to diurese CBC was unremarkable Coagulations normal Blood gas unremarkable Chemistry is unremarkable No evidence of sepsis Patient is off the Aricept and off a beta-chang CBC and chemistry unremarkable
[2025-02-04] MEDS: GABAPENTIN 100 MG CAPSULE 200 MG PO ×2 (21:02→21:56)
[2025-02-05] VITALS (7 sets, daily range): BP systolic 97–122; BP diastolic 52–74; PULSE 78–118; RESP 20–36; TEMP 36.1–36.4; O2SAT 93–100; BMI 25.4
[2025-02-05] MEDS: ALBUTEROL/IPRATROPIUM (Duoneb) RT SOL 3 ML NEBU INH ×3 (03:04→11:11)
[2025-02-05] MEDS: HEPARIN SOD INJ 5000 UNIT/ML VIAL SC (05:46)
[2025-02-05 06:10] LABS: Basophils # (Auto) 0.1 Thou/mm3 (0.0-0.2); Basophils % (Auto) 1 % (0-2.5); Eosinophils # (Auto) 0.1 Thou/mm3 (0.0-0.5); Eosinophils % (Auto) 0 % (0-10); Hematocrit 29.5 % (36.0-46.0); Immature Granulocytes % (Auto) 4 % (0-0); Immature Granulocytes Auto 0.46 Thou/mm3 (0.00-0.00); Lymphocytes # (Auto) 1.7 Thou/mm3 (1.0-4.8); Lymphocytes % (Auto) 14 % (10-50); Mean Corpuscular HGB Conc 29.5 g/dl (31.0-37.0); Mean Corpuscular Hemoglobin 25.4 pg (25.0-35.0); Mean Corpuscular Volume 86 fL (80-100); Monocytes # (Auto) 1.2 Thou/mm3 (0.0-0.8); Monocytes % (Auto) 10 % (0-12); Neutrophils # (Auto) 8.2 Thou/mm3 (1.8-7.7); Neutrophils % (Auto) 70 % (37-80); Nucleated Red Blood Cell % 0 /100 WBC (0); Platelet Count 274 Thou/mm3 (140-440); RDW Standard Deviation 51.6 fL (36.4-46.3); Red Blood Count 3.42 Miln/mm3 (4.00-5.20); White Blood Count 11.7 Thou/mm3 (3.6-11.0)
[2025-02-05 06:14] LABS: Hemoglobin 8.7 g/dL (12.0-16.0)
[2025-02-05 06:58] LABS: Alanine Aminotransferase 14 U/L (10-49); Albumin, Serum 3.5 gm/dL (3.4-4.8); Albumin/Globulin Ratio 1.4 (1.2-2.2); Alkaline Phosphatase 78 U/L (46-116); Anion Gap 5 (7-16); Aspartate Amino Transferase 20 U/L (0-34); BUN/Creatinine Ratio 23 Ratio (12-20); Bilirubin,Total < 0.2 mg/dL (0.3-1.2); Blood Urea Nitrogen 14 mg/dL (9-23); Calcium 8.6 mg/dL (8.3-10.6); Carbon Dioxide 33.4 mMol/L (20.0-31.0); Chloride 105 mMol/L (98-107); Creatinine (Component) 0.6 mg/dL (0.6-1.3); Estimated Creatinine Clearance 63.1 mL/min (>60); Globulin 2.5 gm/dL (2.3-3.5); Glucose 101 mg/dL (74-106); Magnesium 2.1 mg/dL (1.6-2.6); Osmolality,Calculated 285 (275-295); Phosphorous 4.3 mg/dL (2.4-5.1); Sodium 143 mMol/L (136-145); eGFR > 60 See Note
[2025-02-05] MEDS: LEVOFLOXACIN/D5W 750MG IVPB 750 MG/150 ML BAG 100 MG IV (09:30)
[2025-02-05] MEDS: PRAMIPEXOLE 0.25 MG TABLET 0.5 MG PO (09:32)
--- NOTE | 2025-02-05 11:40 | PC.SS ---
SS follow up note; Patient will discharge today.
--- NOTE | 2025-02-05 15:20 | ESDS_ITS ---
Planned Discharge Date 02/05/25 DS: Providers Provider Date of admission: 02/03/25 20:36 Primary care physician: Marnie Mariee MD Admitting Provider: Surjit Saldaña MD Attending Provider on Admission: Darlin Omer MD Attending Provider on DC: Bennett Stout MD Discharging Provider: Bennett Stout MD Hospital Course Hospital Course Hospital course: Patient is a different type admit. Patient seen and examined at bedside this morning. Patient is comfortably resting saturating 97% on 5 L oxygen via nasal cannula. Patient states that she has known history of COPD and uses 2 L oxygen at home but very gets very short of breath when she is speaking she is unable to complete sentences without having to pause several times due to shortness of breath. Patient states although she quit smoking many years ago she was always exposed to secondhand smoking through her who smoked inside the house. Patient states that she does not have any cardiac history and her doctor recently told her her heart is as good as someone very young. Patient believes that her symptoms are exacerbated because there was a recent change in her medication. Her doctor had increased Trelegy dose which patient did not really try to tolerate that well and was decreased back to her previous dose however s he had exacerbated symptoms after that. Patient denies any chest pain, palpitations, dizziness or syncopal episodes. Labs are significant for hemoglobin 8.2, hematocrit 28.0, and iron panel was consistent with iron deficiency anemia. Patient has no other complaints. Time Spent with Patient Time attestation: Total time spent providing and/or coordinating discharge services: Exam Vital Signs Temp Pulse Resp BP Pulse Ox O2 Del Method O2 Flow Rate 97.4 F 93 20 111/72 97 Room Air 2 02/05/25 12:00 02/05/25 12:00 02/05/25 12:00 02/05/25 12:00 02/05/25 12:00 02/05/25 12:00 02/05/25 11:13 Discharge Plan Plan Patient Disposition: HOME (Self Care) Patient condition on transfer: Stable Prescriptions/Referrals Prescriptions/Med Rec: New levofloxacin 750 mg tablet 750 mg PO Q24H 4 Days Qty: 4 0RF methylprednisolone [Medrol (Myron)] 4 mg tablets,dose pack 4 mg PO QDAY Qty: 21 0RF Continued pramipexole 0.5 mg tablet 0.5 mg PO BID Patient Comments: take 1 tablet by mouth every morning and 2 tablets BEFORE SLEEP F... (REFER TO PRESCRIPTION NOTES). lorazepam 0.5 mg tablet 1 mg PO Q12H PRN (Reason: anxiety) Patient Comments: take 1 tablet by mouth twice a day if needed for anxiety maximum daily dose of 2 albuterol sulfate 90 mcg/actuation HFA aerosol inhaler 2 inh inhalation Q4H PRN (Reason: copd) Patient Comments: INHALE 2 PUFFS BY MOUTH EVERY 4 HOURS NEEDED FOR SHORTNESS OF BREATH escitalopram oxalate 10 mg tablet 10 mg PO QDAY Patient Comments: take 1 tablet by mouth once daily for anxiety roflumilast 250 mcg tablet 250 mcg PO HS Patient Comments: take 1 tablet by mouth at bedtime Trelegy Ellipta 200-62.5-25 mcg blister with device 1 inh INHALATION Q24H Patient Comments: USE 1 INHALATION BY MOUTH DAILY Discontinued azithromycin 250 mg tablet 250 mg PO TID Patient Comments: TAKE 1 TABLET BY MOUTH 3 TIMES A WEEK DIRECTED amoxicillin-pot clavulanate 875-125 mg tablet 875 tab PO Q12H Patient Comments: TAKE 1 TABLET BY MOUTH EVERY 12 HOURS Referrals: Marnie Mariee MD [Primary Care Provider] - Patient/Caregiver Discharge Instructions Education Materials: COPD: Chronic Coughing, COPD Meds Print Language: [place] Stand Alone Forms: [facility]ira Award Info., Patient Portal Info Letter Discharge Order Discharge Orders: Discharge (Routine); Ordered 02/05/25 Ordered By: Bennett Stout
== END 2025-02-05 14:44 | disposition home or self-care (01) | DRG 193 ==
LOC: SERX 19:47 → SERHOLD 20:47 → S2SX 02-04 05:39 → S2NX 02-04 23:23
PROVIDERS: Registered Nurse General Practice; Student in an Organized Health Care Education/Training Program; Admitting Provider Student in an Organized Health Care Education/Training Program; Emergency Provider Emergency Medicine; PCP Student in an Organized Health Care Education/Training Program; Visit Provider Internal Medicine
DX: J18.9 Pneumonia, unspecified organism (principal); J96.21 Acute and chronic respiratory failure with hypoxia; J96.22 Acute and chronic respiratory failure with hypercapnia; J44.1 Chronic obstructive pulmonary disease with (acute) exacerbation; J44.0 Chronic obstructive pulmonary disease with (acute) lower respiratory infection; E87.4 Mixed disorder of acid-base balance; G25.81 Restless legs syndrome; D50.9 Iron deficiency anemia, unspecified; F41.9 Anxiety disorder, unspecified; I48.91 Unspecified atrial fibrillation; Z99.81 Dependence on supplemental oxygen; Z87.891 Personal history of nicotine dependence; Z79.899 Other long term (current) drug therapy; Z88.8 Allergy status to other drugs, medicaments and biological substances
CPT/HCPCS: 36415; 36600; 71045; 71275; 80053; 80061; 80307; 81001; 82607; 82728; 82746; 82803; 83540; 83550; 83605; 83615; 83735; 83880; 84100; 84145; 84439; 84443; 84484; 85025; 85046; 85610; 85730; 87040; 87086; 87205; 87400; 87634; 87811; 93005; 94640; 94644; 94664; 96361; 96365; 96366; 96367; 96372; 96375; 99285; A4649; A9270; J1643; J1956; J2060; J2919; J3475; J3480; J3490; J7120; Q9967

== ENCOUNTER → 2025-03-25 | Outpatient (CLI) | payer MEDICARE, SELFPAY ==
[2025-03-25 10:43] LABS: Blood Urea Nitrogen 23 mg/dL (9-23); Creatinine (Component) 0.6 mg/dL (0.6-1.3); eGFR > 60 See Note
== END | disposition home or self-care (01) ==
LOC: COPL 09:30
PROVIDERS: Referring Provider Internal Medicine Hematology & Oncology; Visit Provider Internal Medicine Hematology & Oncology
DX: C34.92 Malignant neoplasm of unspecified part of left bronchus or lung (principal)
CPT/HCPCS: 36415; 82565; 84520

== ENCOUNTER 2025-04-10 14:35 | Inpatient (IN) | payer MEDICARE, SELFPAY ==
[2025-04-10] VITALS (8 sets, daily range): BP systolic 113–138; BP diastolic 68–73; PULSE 78–94; RESP 18–83; TEMP 36.7–37.1; O2SAT 88–97; BMI 27.8; BMI 23.6
--- NOTE | 2025-04-10 14:50 | XR_ITS ---
Examination: CT brain head without contrast. 2-D sagittal coronal reconstructions Date and time of exam:April 10, 2025, 1514 hrs. Indications: Patient fell today with injury to the head, head pain CTDI: vol (mGy):46 DLP: (mGycm):936 Technique: Multiple CT axial sections of the brain have been obtained, 5 mm slice thickness. Contrast has not been administered. 2-D sagittal, coronal reconstructions have been obtained Low dose protocols were performed. One or more of the following dose reduction techniques were used; automated exposure control, adjustment of the mA and/or KV according to patient size, use of iterative reconstruction technique. Findings: No significant ventricular enlargement. Left frontal soft tissue scalp swelling Intra-axial or extra-axial hemorrhage density is not seen. No mass effect or midline shift Basal cisterns are not remarkable. Fourth ventricle is midline. Cranial vault intact. Impression: Negative for acute hemorrhage, mass effect or midline shift
--- NOTE | 2025-04-10 14:50 | XR_ITS ---
Examination: CT maxillofacial, without intravenous contrast. 2-D sagittal reconstructions. 3-D reconstructions. Date and time of exam:April 10, 2025, 1504 hrs. Indications: Patient fell today with injury to the left eye, hematoma left thigh CTDI: vol (mGy):16.9 DLP: (mGycm):317 Technique: Multiple axial images of maxillofacial region, 3.0 mm slice thickness. 2-D sagittal and coronal reconstructions. 3-D reconstructions. Low dose protocols were performed. One or more of the following dose reduction techniques were used; automated exposure control, adjustment of the mA and/or KV according to patient size, use of iterative reconstruction technique. Findings: Frontal bone frontal sinuses intact Orbital rims intact No depression zygomatic arches. Pterygoid plates maxilla and the mandible intact The optic globes exhibit symmetry no retro-orbital hematoma or contusion There is soft tissue swelling external to the left optic globe Impression: No acute facial fracture.
--- NOTE | 2025-04-10 14:50 | XR_ITS ---
Examination: CT cervical spine without contrast 2-D sagittal reconstructions 2-D coronal reconstructions 3-D reconstructions. Exam date and time:April 10, 2025, 1504 hrs. Indications: Patient fell today with injury to the neck, neck pain CTDI:vol (mGy) 12.2 DLP: (mGycm) 230 Technique: Multiple 2 mm axial sections of the cervical spine have been obtained. The coronal and sagittal reconstructions have been obtained. 3-D reconstructions have been obtained. Low dose protocols were performed. One or more of the following dose reduction techniques were used; automated exposure control, adjustment of the mA and/or KV according to patient size, use of iterative reconstruction technique. Findings: Axial sections demonstrate intact base of the skull. C1 exhibit satisfactory relationship to the odontoid. No acute cervical vertebral body fracture seen. Alignment posterior spinous processes satisfactory. Reversal normal cervical lordosis Advanced disc narrowing C5-C6, C6-C7 Impression: No acute cervical fracture.
--- NOTE | 2025-04-10 14:50 | XR_ITS ---
Examination: AP chest single view Technique one AP portable sitting chest single view Date and time: April 10, 2025, 1522 hrs. Comparison February 03, 2025 Indications: Patient fell today with injury to the neck and face, orbital pain facial pain head pain Findings: Moderate enlargement left ventricle Mild opacity in the left midlung No pneumothorax Prominent osteopenia Clavicles ribs appear grossly intact Impression: Moderate enlargement left ventricle No pneumothorax or hemothorax Parenchymal disease left midlung, consider scar formation, pneumonia clinical correlation advised
--- NOTE | 2025-04-10 14:51 | EDNOTE_ITS ---
<Statement entered by Ramona Wolf MD - 04/11/25 04:32> As co-signing physician, I was present and available for consult prn. I concur with the plan and care as documented by the midlevel provider. ED Fall Injury RME/HPI General Chief Complaint: Altered Mental Status Stated Complaint: FALL 2 DAYS AGO, BRUISE TO EYE, ALTERED Time Seen by Provider: 04/10/25 14:44 Arrival date/time: 04/10/25 14:35 RME / HPI RME / HPI Narrative: 75-year-old female patient was brought in by family for evaluation regarding ground-level fall. Patient sustained a ground-level fall about 2 days ago, and sustained contusion hematoma to the left periorbital area. Patient was seen in the urgent care, and no imaging was done. Today patient was noted to be having on and off confusion. Denies any headache denies any other complaints. Patient is not taking any blood thinner. Related Data Home Medications ?Medication ?Instructions ?Recorded ?Confirmed albuterol sulfate 90 mcg/actuation 2 inh inhalation Q4 H PRN copd 02/04/25 02/04/25 aerosol inhaler escitalopram oxalate 10 mg tablet 10 mg PO QDAY anxiet y 02/04/25 02/04/25 fluticasone fur. 200 mcg-umeclid 1 inh inhalation Q24H 02/04/25 02/04/25 62.5 mcg-vilant 25 mcg inhalat.powder (Trelegy Ellipta) lorazepam 0.5 mg tablet 1 mg PO Q12H PRN anxiety 02/04/25 roflumilast 250 mcg tablet 250 mcg PO HS 02/04/2501/13 Previous Rx's ?Medication ?Instructions ?Recorded methylprednisolone 4 mg tablets in 4 mg PO QDAY #21 ta bs 02/05/25 a dose pack (Medrol (Myron)) pramipexole 0.5 mg tablet 0.5 mg PO BID restless leg # 30 tabs 03/22/25 Allergies Allergy/AdvReac Type Severity Reaction Status Date / Time cefaclor Allergy Severe Confusion Verified 04/10/25 14:44 nirmatrelvir (From Paxlovid) Allergy Severe Abdominal Verified 04/10/25 14:44 Pain prednisone Allergy Severe Confusion Verified 04/10/25 14:44 ritonavir (From Paxlovid) Allergy Severe Abdominal Verified 04/10/25 14:44 Pain Review of Systems Review of Systems Narrative Review of Systems: Review of system reviewed and within normal limits except mentioned in HPI ED Exam Narrative Physical exam: VITAL SIGNS: Reviewed. GENERAL APPEARANCE: Alert and interactive, follows commands, no acute distress, HEAD AND FACE: Left Max orbital contusion hematoma ENT: PERRL, pink conjunctivitis, eyelid no trauma, Mucous membrane moist. NECK: Supple, nontender, no nuchal rigidity. CHEST: No tenderness, no crepitus, no paradoxical movement, no retractions. LUNGS: Clear, well ventilated, symmetric, no rales, no wheezing, no ronchi, no stridor, good breath sounds bilaterally. HEART: Regular rate, regular rhythm, no murmur, no gallops. ABDOMEN: Soft, positive bowel sounds, nondistended, no guarding, nontender, no rebound, no masses, RECTAL: Deferred. GENITAL: Deferred. NEUROLOGICAL: Gross motor function intact sensory function intact, Appropriate for age. MUSCULOSKELETAL: low back nontender, full range of motion. EXTREMITIES: Nontender, full range of motion. SKIN: Color pink, dry, no rash, no lacerations, no abrasions, no contusions. LYMPHATICS: Deferred. Course Quality Measures none Orders Category Date Time Status COVID-19 Screening Questionnaire NOW Care 04/10/25 19:48 Active Decision to Admit X1 Care 04/10/25 19:48 Active EKG (ED ONLY) *Do not use* NOW Care 04/10/25 14:51 Completed Endoscopy Consents .On arrival Care 04/10/25 18:15 Active NPO after Midnight ONCE Care 04/10/25 18:10 Active NPO after Midnight ONCE Care 04/10/25 18:15 Active Transfuse,blood/blood products ONCE Care 04/10/25 16:23 Active Consult to Gastroenterology Stat Cons 04/10/25 18:04 Ordered Diet NPO after Midnight Diet 04/11/25 00:01 Active Diet NPO after Midnight Diet 04/11/25 00:[address] cervical spine wo con Stat Exams 04/10/25 14:[address] facial bones wo con Stat Exams 04/10/25 14:[address] head/brain wo con Stat Exams 04/10/25 14:50 Completed EKG (ED Only) Stat Exams 04/10/25 14:51 Draft XR chest 1V Stat Exams 04/10/25 14:50 Completed CBC Stat Lab 04/10/25 15:43 Completed Comprehensive Metabolic Panel Stat Lab 04/10/25 15:43 Completed Partial Thromboplastin Time Stat Lab 04/10/25 15:43 Completed Prothrombin Time with INR Stat Lab 04/10/25 15:43 Completed Troponin I Stat Lab 04/10/25 15:43 Completed Type and Screen Stat Lab 04/10/25 15:43 Results Urinalysis, C/S if Indicated Stat Lab 04/10/25 15:30 Completed prbc [Red Blood Cells] Stat Lab 04/10/25 15:43 Results Pantoprazole Inj [Protonix Inj] Med 04/10/25 18:03 Discontinued 80 mg IVP X1 ONE rOPINIRole HCL [Requip] Med 04/10/25 18:11 Discontinued 1 mg PO X1 ONE Vital Signs Vital signs: Vital Signs Temperature 98.4 F 04/10/25 14:50 Pulse Rate 88 04/10/25 14:50 Respiratory Rate 20 04/10/25 14:50 Blood Pressure 121/72 04/10/25 14:50 Pulse Oximetry (%) 96 04/10/25 14:50 Oxygen Delivery Method Nasal Cannula 04/10/25 14:50 Oxygen Flow Rate 2 04/10/25 14:50 Fall MDM Narrative MDM Narrative:: 75-year-old female patient was brought in by family for evaluation regarding ground-level fall. Patient sustained a ground-level fall about 2 days ago, and sustained contusion hematoma to the left periorbital area. Patient was seen in the urgent care, and no imaging was done. Today patient was noted to be having on and off confusion. Denies any headache denies any other complaints. Patient is not taking any blood thinner. Rectal exam was done by me, tested positive for occult blood. I have reviewed patient's hemoglobin, about 2 months ago it was 8.7, today 7.1 CT scan of the head came back unremarkable CT scan of the neck came back unremarkable. Urinalysis no UTI. Chest x-ray came back unremarkable. CT scan of the face came back with no acute pathology. EKG showed normal sinus rhythm, ventricular rate of 83 bpm, no ST segment elevation or depression noted. Patient received 2 units of packed RBC. Patient was also given IV Protonix. Spoke with Dr. Pritchett, GI specialist on-call, who told me to put the patient on n.p.o. postmidnight for endoscopy tomorrow. Patient data External records reviewed:: None Clinical information provided by:: patient and family Social determinants that could affect healthcare access:: none Patient has the following chronic illnesses:: COPD How is presenting disease/condition affected by chronic disease/condition?: uneffected by Evaluation data The following diagnostics were reviewed and interpreted by me:: lab results, radiology exam(s) and EKG tracing(s) Lab and/or radiology exams considered but not ordered:: None Interpretation Summary: See results in MDM Medications / Prescriptions Medications or Prescriptions considered but not ordered:: None Medication administrations:: Medication Administration History Acetaminophen (Acetaminophen 325 Mg Tablet) 650 mg PO Q6H PRN PRN Reason: Fever >100.4 Stop: 05/10/25 20:12 Acetaminophen (Acetaminophen 325 Mg Tablet) 650 mg PO Q6H PRN PRN Reason: PAIN SCALE 1-3 (mild Stop: 05/10/25 20:12 Hydrocodone Bitart/Acetaminophen (Hydrocodone/Apap 5/325 Tablet) 1 tab PO Q4HR PRN PRN Reason: PAIN SCALE 4-6 (Moderate Stop: 04/15/25 20:12 Albuterol/Ipratropium (Albuterol/Ipratropium (Duoneb) Rt Katalina 3 Ml Nebu) 3 ml INH Q6HRRT PRN PRN Reason: Wheezing or SOB Stop: 05/11/25 00:59 Ondansetron HCl (Ondansetron Inj 2 Mg/Ml Inj 2 Ml) 4 mg IVP Q6H PRN; Protocol PRN Reason: NAUSEA OR VOMITING Stop: 05/10/25 20:12 Pantoprazole Sodium (Pantoprazole 40 Mg Tablet) 40 mg PO BID CHANTE Stop: 05/10/25 20:59 Last Admin: 04/10/25 20:29 Dose: 40 mg Documented By: EE Discontinued Medications Pantoprazole Sodium (Pantoprazole Inj 40 Mg Vial) 80 mg IVP X1 ONE Stop: 04/10/25 18:04 Last Admin: 04/10/25 20:29 Dose: 80 mg Documented By: EE Ropinirole HCl (Ropinirole Hcl 1 Mg Tablet) 1 mg PO X1 ONE Stop: 04/10/25 18:12 Last Admin: 04/10/25 20:29 Dose: 1 mg Documented By: PANDA IV fluids, record Consultations Consultation(s) initiated? (list below): No Diagnosis Fall Differential Diagnosis: syncope and other (Intracranial bleed, facial fracture, anemia, upper GI bleed) Most likely diagnosis given after review of the tests above:: Fall, upper GI bleed, anemia Admission Indicated Admission indicated?: indicated Admission Request Was there a request for admission?: Yes Admission Attestation Admission request attestation: Discussed case with [Dr Castro] from Hospitalist service regarding admission. Discussed patients ED course, exam findings, labs, and radiology results. The Hospitalist [agrees,] to accept the patient for admission. Disposition Plan Disposition Plan: Admit Discharge Plan Plan Patient Disposition: Admit Acute Care w/in Hospital Problem List Clinical Impression: Anemia, Upper GI bleed, Fall
--- NOTE | 2025-04-10 14:51 | EKG_ITS ---
[facility] Test Date: 2025-04-10 Pat Name: NGHIA HUTCHINSON Department: Room: - Gender: Female [employer]: : 1950 Requested By: Bj Hair Order Number: [id number] Reading MD: Bj Hair Measurements Intervals [place] Rate: 83 P: -19 OK: 145 QRS: -19 QRSD: 92 T: 66 QT: 359 QTc: 423 Interpretive Statements SINUS RHYTHM WITH SINUS ARRHYTHMIA Compared to ECG 02/03/2025 20:10:38 Atrial fibrillation no longer present Myocardial infarct finding no longer present /store/S0/[id number]/[id number].pdf
[2025-04-10 15:59] LABS: Collection Type, Urine Clean Catch
[2025-04-10 16:09] LABS: Basophils # (Auto) 0.1 Thou/mm3 (0.0-0.2); Basophils % (Auto) 1 % (0-2.5); Eosinophils # (Auto) 0.2 Thou/mm3 (0.0-0.5); Eosinophils % (Auto) 3 % (0-10); Hematocrit 24.3 % (36.0-46.0); Immature Granulocytes Auto 0.02 Thou/mm3 (0.00-0.00); Lymphocytes # (Auto) 0.9 Thou/mm3 (1.0-4.8); Lymphocytes % (Auto) 15 % (10-50); Mean Corpuscular HGB Conc 29.2 g/dl (31.0-37.0); Mean Corpuscular Hemoglobin 24.2 pg (25.0-35.0); Mean Corpuscular Volume 83 fL (80-100); Monocytes # (Auto) 0.7 Thou/mm3 (0.0-0.8); Monocytes % (Auto) 12 % (0-12); Neutrophils # (Auto) 4.1 Thou/mm3 (1.8-7.7); Neutrophils % (Auto) 69 % (37-80); Nucleated Red Blood Cell # 0.00 Thou/mm3 (0.00-0.00); Nucleated Red Blood Cell % 0 /100 WBC (0); Platelet Count 234 Thou/mm3 (140-440); RDW Standard Deviation 57.0 fL (36.4-46.3); Red Blood Count 2.93 Miln/mm3 (4.00-5.20); White Blood Count 5.9 Thou/mm3 (3.6-11.0)
[2025-04-10 16:12] LABS: Hemoglobin 7.1 g/dL (12.0-16.0)
[2025-04-10 16:13] LABS: Bilirubin,Urine Negative (Negative); Blood,Urine 1+ (Negative); Clarity,Urine Clear (Clear/Hazy); Color,Urine Yellow (Lt Yel-Yel); Culture Indicated,Urine Not Indicated; Glucose, Urine Negative (Negative); Ketones,Urine Negative (Negative); Leukocyte Esterase,Urine Positive (Negative); Nitrite,Urine Negative (Negative); PH,Urine 6.0 (5.0-7.0); Protein,Urine Trace (Neg - Trace); RBC,Urine 11 /hpf (0-3); Specific Gravity,Urine 1.025 (1.001-1.035); Squamous Epithelial Cell,Urine 4 /hpf (0-5); Urobilinogen,Urine 2.0 mg/dL (0.0-1.0); WBC,Urine 8 /hpf (0-5)
[2025-04-10 16:33] LABS: Alanine Aminotransferase 36 U/L (10-49); Albumin, Serum 4.1 gm/dL (3.4-4.8); Albumin/Globulin Ratio 1.7 (1.2-2.2); Alkaline Phosphatase 84 U/L (46-116); Anion Gap 5 (7-16); Aspartate Amino Transferase 41 U/L (0-34); BUN/Creatinine Ratio 27 Ratio (12-20); Bilirubin,Total 0.3 mg/dL (0.3-1.2); Blood Urea Nitrogen 19 mg/dL (9-23); Calcium 8.8 mg/dL (8.3-10.6); Calcium (Corrected) 8.8 mg/dL (8.5-10.1); Carbon Dioxide 31.4 mMol/L (20.0-31.0); Chloride 109 mMol/L (98-107); Creatinine (Component) 0.7 mg/dL (0.6-1.3); Estimated Creatinine Clearance 48.5 mL/min (>60); Globulin 2.4 gm/dL (2.3-3.5); Glucose 89 mg/dL (74-106); Osmolality,Calculated 289 (275-295); Potassium 4.2 mMol/L (3.4-5.1); Sodium 145 mMol/L (136-145); Total Protein 6.5 gm/dL (5.7-8.2); Troponin I < 0.020 ng/mL (0.0-0.045); eGFR > 60 See Note
[2025-04-10 16:55] LABS: INR 1.0 (0.9-1.3); Partial Thromboplastin Time 27.5 Seconds (22.0-36.0); Prothrombin Time 10.8 Seconds (9.0-12.2)
--- NOTE | 2025-04-10 18:15 | PD.IMCONS ---
HPI Data of Consult Primary Care Provider: Marnie Mariee MD Consult Narrative Reason for consult: FOBT positive hemoglobin of 7.1 g History of present illness: 75 years of female evaluated the request of the ER team for dropping hemoglobin hematocrit rectal exam shows FOBT being positive patient has frequent falls and she was brought into the emergency room for a ground-level fall which led to contusion of the left periorbital area Patient does have a history of COPD with hypoxic hypercapnic respiratory failure was hospitalized not too long ago in the hospital and she is on home oxygen 2 L nasal cannula Her [id number] was in the room at the time of my interview with the patient and she is my patient and so is her for many years patient last colonoscopy was close to 10 years ago No history of any hematemesis melena hematochezia cc:: cc: Review of Systems Review of Systems Systems Reviewed: All systems reviewed, normal except as documented Past Medical History Surgical History OTHER SURGICAL HX: As in the history of present illness Meds Home Medications and Allergies Home Medications ?Medication ?Instructions ?Recorded ?Confirmed ?Type albuterol sulfate 90 mcg/actuation 2 inh inhalation Q4H PRN copd 02/04/25 02/04/25 History aerosol inhaler escitalopram oxalate 10 mg tablet 10 mg PO QDAY anxiety 02/04/25 02/04/25 History fluticasone fur. 200 mcg-umeclid 1 inh inhalation Q24H 02/04/25 02/04/25 History 62.5 mcg-vilant 25 mcg inhalat.powder (Trelegy Ellipta) lorazepam 0.5 mg tablet 1 mg PO Q12H PRN anxiety 02/04/25 02/04/25 History roflumilast 250 mcg tablet 250 mcg PO HS 02/04/25 02/04/25 History Allergies Allergy/AdvReac Type Severity Reaction Status Date / Time cefaclor Allergy Severe Confusion Verified 04/10/25 14:44 nirmatrelvir (From Paxlovid) Allergy Severe Abdominal Verified 04/10/25 14:44 Pain prednisone Allergy Severe Confusion Verified 04/10/25 14:44 ritonavir (From Paxlovid) Allergy Severe Abdominal Verified 04/10/25 14:44 Pain Exam Vital Signs Temp Pulse Resp BP Pulse Ox O2 Del Method O2 Flow Rate 98.4 F 78 20 138/69 H 97 Room Air 2 04/10/25 14:50 04/10/25 18:10 04/10/25 18:10 04/10/25 18:10 04/10/25 18:10 04/10/25 18:10 04/10/25 14:50 Constitutional Comments: Alert oriented Routine Respiratory Exam Comments: Scattered rhonchi Routine Abdominal Exam Comments: Soft nontender Results Labs 04/10/25 15:43 04/10/25 15:43 Labs: Short CBC 04/10/25 Range/Units 15:43 WBC 5.9 (3.6-11.0) Thou/mm3 Hgb 7.1 L (12.0-16.0) g/dL Hct 24.3 L (36.0-46.0) % Plt Count 234 (140-440) Thou/mm3 BMP 04/10/25 15:43 Sodium 145 Potassium 4.2 Chloride 109 H Carbon Dioxide 31.4 H BUN 19 Creatinine 0.7 Glucose 89 Calcium 8.8 Cardiac Enzymes 04/10/25 Range/Units 15:43 Troponin I < 0.020 (0.0-0.045) ng/mL Liver Function 04/10/25 Range/Units 15:43 Total Bilirubin 0.3 (0.3-1.2) mg/dL AST 41 H (0-34) U/L ALT 36 (10-49) U/L Alkaline Phosphatase 84 (46-116) U/L Albumin 4.1 (3.4-4.8) gm/dL Urine 04/10/25 Range/Units 15:30 Urine Color Yellow (Lt Yel-Yel) Urine Clarity Clear (Clear/Hazy) Urine pH 6.0 (5.0-7.0) Ur Specific [place] 1.025 (1.001-1.035) Urine Protein Trace (Neg - Trace) Urine Glucose (UA) Negative (Negative) Assessment and Plan Additional Assessment & Plan Additional Plan: Occult GI bleeding Hemoccult positive stool posthemorrhagic anemia plan fiberoptic esophagogastroduodenoscopy with possible biopsy possible therapeutic intervention under intravenous moderate sedation Consent obtained Procedure scheduled for tomorrow morning N.p.o. midnight tonight In case the upper endoscopy is negative we will consider doing a fibrotic colonoscopy prior to discharge Other medical problems include COPD on home oxygen 2 L nasal cannula Thank you very much for the opportunity to participate in the care of this patient
--- NOTE | 2025-04-10 20:16 | PD.RESHP ---
Documentation for date of: 04/10/25 [facility] History of Present Illness Chief complaint: fall History of present illness: 75-year-old female with past medical history of COPD on 2 L O2 at home, restless leg syndrome, iron deficiency anemia, and lung cancer currently in remission was admitted on 04/10/2025 after experiencing a ground-level fall 2 days ago. Patient stated that 2 days ago she started a new medication, Lyrica, for her restless leg syndrome and that when she woke up to go to the restroom she started feeling very dizzy and was bumping against erythema while walking in then fell and hit her head. Patient at this time was taken to the urgent care where no imaging was done of the head, but patient had a left forehead bruise with cleared up a little bit as per patient's [id number] who was at bedside. Today patient had periorbital bruising and swelling, but was nonpainful. Patient's granddaughter in law also stated that right before she had the fall her oxygen levels dropped to the low 60s as her O2 machine was not working and she had not noticed this. Otherwise her oxygen level down went back up to the 88 to 94% after the machine was working appropriately. Patient stated that she has had diarrhea and constipation on and off for quite some time now, but that she has also noticed that her bowel movements have been darker since some time now, does not remember exactly when it started. She was recently seen in the hospital on 01/2025 found that hemoglobin at this time was 8.7. Patient had no other complaints at this time and stated that she did not have any shortness of breath, cough, chest pain, blood in the urine, burning sensation in urination. She did state that she has been having on and off diarrhea as well as some abdominal pain. ED course: Initially came in afebrile and normotensive. Initial labs were 11 for anemia (Hgb 7.1 from 8.7 on 02/05/2025), metabolic alkalosis, and fecal occult blood positive. Initial imaging included shows x-ray which showed moderate enlargement of the left ventricle, cervical spine CT along with the CT and head CT which all did not show any hemorrhage or any acute fractures, but did show some soft tissue swelling left frontal skull and exterior to the left optic globe. PMH: COPD on 2 L O2 at home, restless leg syndrome, iron deficiency anemia, and lung cancer currently in remission Social Hx: Denies any current alcohol, tobacco, or drugs Allergy: Prednisone and cefaclor Review of Systems Review of Systems Systems Reviewed: All systems reviewed, normal except as documented Past Medical History Past Medical History Comments PMH COMMENT: PMH: COPD on 2 L O2 at home, restless leg syndrome, iron deficiency anemia, and lung cancer currently in remission Social Hx: Denies any current alcohol, tobacco, or drugs Allergy: Prednisone and cefaclor Exam Vital Signs Temp Pulse Resp BP Pulse Ox O2 Del Method O2 Flow Rate 98.4 F 78 20 138/69 H 97 Room Air 2 04/10/25 14:50 04/10/25 18:10 04/10/25 18:10 04/10/25 18:10 04/10/25 18:10 04/10/25 18:10 04/10/25 14:50 Narrative Exam General: A/O x3, no acute distress, pale appearing Eyes: PERRL, EOMI. Anicteric, vision grossly intact. Ears: No ear pain, no ear discharge, Hearing grossly intact. Nose: No nasal discharge. Mouth/Throat: Moist mucous membranes, no redness, no lesions. Neck: Neck supple, non-tender, no cervical lymphadenopathy. Lungs: Clear [place] to auscultation and percussion, No accessory muscle use. Cardio: Normal S1/S2, regular rhythm, systolic murmur appreciated, no JVD Abdomen: Soft, non-tender, no palpable masses, peristalsis present, no guarding or rebound. Extremities: Symmetrical, no significant deformities, no peripheral edema , non-tender, peripheral pulses presents. Skin: No rashes, no lesions, warm to touch. Multiple bruises in OUSMANE UE, L forehead healing bruise, L periorbital swelling and bruising. Non tender. Neuro: No focal neurological deficits. Motor and sensory intact. Psych: Cooperative, appropriate mood and effect. Results: Labs 04/10/25 15:43 04/10/25 15:43 Labs: Short CBC 04/10/25 Range/Units 15:43 WBC 5.9 (3.6-11.0) Thou/mm3 Hgb 7.1 L (12.0-16.0) g/dL Hct 24.3 L (36.0-46.0) % Plt Count 234 (140-440) Thou/mm3 BMP 04/10/25 15:43 Sodium 145 Potassium 4.2 Chloride 109 H Carbon Dioxide 31.4 H BUN 19 Creatinine 0.7 Glucose 89 Calcium 8.8 Cardiac Enzymes 04/10/25 Range/Units 15:43 Troponin I < 0.020 (0.0-0.045) ng/mL Liver Function 04/10/25 Range/Units 15:43 Total Bilirubin 0.3 (0.3-1.2) mg/dL AST 41 H (0-34) U/L ALT 36 (10-49) U/L Alkaline Phosphatase 84 (46-116) U/L Albumin 4.1 (3.4-4.8) gm/dL Urine 04/10/25 Range/Units 15:30 Urine Color Yellow (Lt Yel-Yel) Urine Clarity Clear (Clear/Hazy) Urine pH 6.0 (5.0-7.0) Ur Specific [place] 1.025 (1.001-1.035) Urine Protein Trace (Neg - Trace) Urine Glucose (UA) Negative (Negative) Quality Measures Quality Measures VTE prophylaxis Advance care planning discussed with:: patient and other (granddaughter in law) Medications Home Medications and Allergies Home Medications ?Medication ?Instructions ?Recorded ?Confirmed ?Type albuterol sulfate 90 mcg/actuation 2 inh inhalation Q4H PRN copd 02/04/25 02/04/25 History aerosol inhaler escitalopram oxalate 10 mg tablet 10 mg PO QDAY anxiety 02/04/25 02/04/25 History fluticasone fur. 200 mcg-umeclid 1 inh inhalation Q24H 02/04/25 02/04/25 History 62.5 mcg-vilant 25 mcg inhalat.powder (Trelegy Ellipta) lorazepam 0.5 mg tablet 1 mg PO Q12H PRN anxiety 02/04/25 02/04/25 History roflumilast 250 mcg tablet 250 mcg PO HS 02/04/25 02/04/25 History Allergies Allergy/AdvReac Type Severity Reaction Status Date / Time cefaclor Allergy Severe Confusion Verified 04/10/25 14:44 nirmatrelvir (From Paxlovid) Allergy Severe Abdominal Verified 04/10/25 14:44 Pain prednisone Allergy Severe Confusion Verified 04/10/25 14:44 ritonavir (From Paxlovid) Allergy Severe Abdominal Verified 04/10/25 14:44 Pain Visit Medications Acetaminophen (Acetaminophen 325 Mg Tablet) 650 mg PO Q6H PRN PRN Reason: Fever >100.4 Stop: 05/10/25 20:12 Acetaminophen (Acetaminophen 325 Mg Tablet) 650 mg PO Q6H PRN PRN Reason: PAIN SCALE 1-3 (mild Stop: 05/10/25 20:12 Hydrocodone Bitart/Acetaminophen (Hydrocodone/Apap 5/325 Tablet) 1 tab PO Q4HR PRN PRN Reason: PAIN SCALE 4-6 (Moderate Stop: 04/15/25 20:12 Albuterol/Ipratropium (Albuterol/Ipratropium (Duoneb) Rt Katalina 3 Ml Nebu) 3 ml INH Q6HRRT PRN PRN Reason: Wheezing or SOB Stop: 05/11/25 00:59 Ondansetron HCl (Ondansetron Inj 2 Mg/Ml Inj 2 Ml) 4 mg IVP Q6H PRN; Protocol PRN Reason: NAUSEA OR VOMITING Stop: 05/10/25 20:12 Pantoprazole Sodium (Pantoprazole 40 Mg Tablet) 40 mg PO BID CHANTE Stop: 05/10/25 20:59 Discontinued Medications Pantoprazole Sodium (Pantoprazole Inj 40 Mg Vial) 80 mg IVP X1 ONE Stop: 04/10/25 18:04 Ropinirole HCl (Ropinirole Hcl 1 Mg Tablet) 1 mg PO X1 ONE Stop: 04/10/25 18:12 Assessment & Plan Plan 75-year-old female with past medical history of COPD on 2 L O2 at home, restless leg syndrome, iron deficiency anemia, and lung cancer currently in remission was admitted on 04/10/2025 for for acute blood loss anemia likely in the setting of GI bleed. #Ground-level fall #Acute blood loss anemia #GI bleed Patient came in after having a ground-level fall 2 days ago when she started a new medication, Lyrica. Patient's symptoms mostly multifactorial in the setting of new medication as well as anemia which could be caused due to GI bleed as patient occult blood was positive and she has been having black starry stools. Head CT, cervical spine CT, face CT did not show any fractures or acute hemorrhage Patient's hemoglobin was 7.1 on admission from 8.7 on 02/05/2025 Plan: Protonix twice daily 1 unit PRBC in the ED N.p.o. after midnight GI consulted, appreciate commendations 1 PRBC will be Ready in the setting of hemoglobin drop Will transfer hemoglobin less than 7 Will continue to monitor #Metabolic alkalosis #Diarrhea Patient has been having diarrhea on and off for quite some time now Patient bicarb was 31.4 likely in the setting of diarrhea Plan: Will continue to monitor Chronic diseases: #Hx of restless leg syndrome #Hx of COPD on 2 L of O2 at home #Hx of lung cancer currently in remission Patient has restless leg syndrome and was taking Lyrica, but this medication caused the patient to be dizzy therefore we will hold Patient was given ropinirole 1 mg in the ED for restless leg syndrome Chest x-ray did not show any pneumonia Disposition: Patient admitted to med surg for GI bleed. Diet: NPO midnight GI prophylaxis: protonic DVT prophylaxis: SCDs in setting of blood loss anemia Code: full Case disclosed with Attending Dr. Neena Gerard PGY1 Disclaimer: Even though this this note was dictated by speech recognition and even though it was carefully revised there may still be minor errors in linux solar[employer] administrator due to voice recognition software. Attending Provider Attestation/Addendum 75-year-old female with lung cancer in remission, restless leg syndrome was admitted because of a fall. Patient was found to have acute blood loss anemia. Suspect GI bleed. Dr. Pritchett will consult. Patient will need physical therapy evaluation we will check orthostatic changes. No reported fracture. No hypotension. I discussed with and supervised the resident physician who took care of this patient. I agree with the assessment and plan as above.
[2025-04-10] MEDS: PANTOPRAZOLE 40 MG TABLET PO (20:29)
[2025-04-10 21:40] LABS: Iron < 2 mcg/dL (50-170); Percent Iron Saturation 0 % (20-55); Total Iron Binding Capacity 378 mcg/dL (250-425); Unsaturated Iron Binding 376 (225-295)
--- NOTE | 2025-04-10 23:03 | PC.NURSE ---
Patient arrived in the unit around 22:00 via gurney with ongoing blood transfusion. Assisted patient to bed. Provided safety and comfort.
[2025-04-10 23:57] LABS: Hematocrit 26.3 % (36.0-46.0)
[2025-04-11] VITALS (16 sets, daily range): BP systolic 117–176; BP diastolic 61–77; PULSE 63–82; RESP 17–24; TEMP 36.1–36.8; O2SAT 92–100
[2025-04-11 00:23] LABS: Hemoglobin 7.9 g/dL (12.0-16.0)
--- NOTE | 2025-04-11 00:47 | PC.NURSE ---
Hgb 7.9, hct 26.3 1hr post transfusion. MD dugan.
[2025-04-11 06:36] LABS: Basophils # (Auto) 0.1 Thou/mm3 (0.0-0.2); Basophils % (Auto) 2 % (0-2.5); Eosinophils # (Auto) 0.2 Thou/mm3 (0.0-0.5); Eosinophils % (Auto) 3 % (0-10); Hematocrit 29.6 % (36.0-46.0); Hemoglobin 8.9 g/dL (12.0-16.0); Immature Granulocytes Auto 0.03 Thou/mm3 (0.00-0.00); Lymphocytes # (Auto) 0.8 Thou/mm3 (1.0-4.8); Lymphocytes % (Auto) 12 % (10-50); Mean Corpuscular HGB Conc 30.1 g/dl (31.0-37.0); Mean Corpuscular Hemoglobin 25.7 pg (25.0-35.0); Mean Corpuscular Volume 86 fL (80-100); Monocytes # (Auto) 0.9 Thou/mm3 (0.0-0.8); Monocytes % (Auto) 14 % (0-12); Neutrophils # (Auto) 4.7 Thou/mm3 (1.8-7.7); Neutrophils % (Auto) 69 % (37-80); Nucleated Red Blood Cell # 0.00 Thou/mm3 (0.00-0.00); Nucleated Red Blood Cell % 0 /100 WBC (0); Platelet Count 215 Thou/mm3 (140-440); RDW Standard Deviation 56.4 fL (36.4-46.3); Red Blood Count 3.46 Miln/mm3 (4.00-5.20); White Blood Count 6.8 Thou/mm3 (3.6-11.0)
[2025-04-11 07:16] LABS: Alanine Aminotransferase 56 U/L (10-49); Albumin, Serum 3.7 gm/dL (3.4-4.8); Albumin/Globulin Ratio 1.5 (1.2-2.2); Alkaline Phosphatase 93 U/L (46-116); Anion Gap 5 (7-16); Aspartate Amino Transferase 73 U/L (0-34); BUN/Creatinine Ratio 33 Ratio (12-20); Bilirubin,Total 0.5 mg/dL (0.3-1.2); Blood Urea Nitrogen 20 mg/dL (9-23); Calcium 8.5 mg/dL (8.3-10.6); Calcium (Corrected) 8.7 mg/dL (8.5-10.1); Carbon Dioxide 34.3 mMol/L (20.0-31.0); Chloride 109 mMol/L (98-107); Creatinine (Component) 0.6 mg/dL (0.6-1.3); Estimated Creatinine Clearance 61.1 mL/min (>60); Globulin 2.4 gm/dL (2.3-3.5); Glucose 92 mg/dL (74-106); Magnesium 2.3 mg/dL (1.6-2.6); Osmolality,Calculated 296 (275-295); Potassium 4.0 mMol/L (3.4-5.1); Sodium 148 mMol/L (136-145); Total Protein 6.1 gm/dL (5.7-8.2); eGFR > 60 See Note
--- NOTE | 2025-04-11 12:02 | ESPR_ITS ---
Documentation for date of: 04/11/25 Subjective Subjective Interval history: New overnight admission for multifactorial fall and GI bleed workup.?Patient seen and examined at bedside this AM.?Patient was awake and conversational, family at bedside. Family stated that patient had been recently trying different medications for restless legs and neuropathy. Patient had tried gabapentin in the past but it made her dizzy. She tried Lyrica for the first time 2 days ago and had a fall, and family stated since then she started seeming confused on and off. Labs and vitals were reviewed.?ED workup did not reveal any immediate etiologies, with a negative CT for head, neck, and face. Hgb was 7.1 however and the patient was transfused 1 PRBC and post-transfusion is 8.9. She had endorsed dark stools for an unspecified amount of time therefore GI was consulted and patient is scheduled for an EGD today, which may progress to a colonoscopy prep if source of bleeding is not found. Patient has left-sided periorbital bruising, non-tender to palpation. Patient denies any urinary symptoms including dysuria, frequency, or tenderness to the bladder area. No further complaints at this time. Review of systems otherwise negative except what is mentioned above. Exam Vital Signs Temp Pulse Resp BP Pulse Ox O2 Del Method O2 Flow Rate 96.9 F 69 18 133/73 H 63 L Room Air 2 04/11/25 11:45 04/11/25 11:45 04/11/25 11:45 04/11/25 11:45 04/11/25 11:45 04/11/25 11:45 04/11/25 10:32 Narrative Exam Physical Exam General: Elderly female, awake and in no acute distress. Conversational and non- toxic appearing. HEENT: Left periorbital bruising and swelling, non-tender. Normocephalic, mucous membranes moist. Heart: Regular rate and rhythm, normal S1 and S2, soft systolic ejection murmur Lungs: Expiratory wheezes. Abdomen: Soft, nondistended, nontender, positive bowel sounds. ?No guarding or rebound tenderness. Neurologic: Alert and oriented x3, no gross neurological deficit, and patient able to move all 4 extremities. Extremities: No edema. Skin: Pale appearing Objective Labs 04/11/25 04:58 04/11/25 04:58 Labs: Laboratory Results - last 24 hr 04/10/25 04/10/25 04/10/25 15:30 15:43 23:43 WBC 5.9 RBC 2.93 L Hgb 7.1 L 7.9 L Hct 24.3 L 26.3 L MCV 83 MCH 24.2 L MCHC 29.2 L RDW Std Deviation 57.0 H Plt Count 234 Neut % (Auto) 69 Lymph % (Auto) 15 [place] % (Auto) 12 Eos % (Auto) 3 Baso % (Auto) 1 Neut # (Auto) 4.1 Lymph # (Auto) 0.9 L [place] # (Auto) 0.7 Eos # (Auto) 0.2 Baso # (Auto) 0.1 Immature Gran # (Auto) 0.02 H Absolute Nucleated RBC 0.00 Immature Gran % 0 Nucleated RBC % 0 PT 10.8 INR 1.0 APTT 27.5 Sodium 145 Potassium 4.2 Chloride 109 H Carbon Dioxide 31.4 H Anion Gap 5 L BUN 19 Creatinine 0.7 Estim Creat Clear Calc 48.5 L eGFR > 60 BUN/Creatinine Ratio 27 H Glucose 89 Calculated Osmolality 289 Calcium 8.8 Corrected Calcium 8.8 Magnesium Iron < 2 L TIBC 378 Iron Saturation 0 L Unsat Iron Binding 376 H Total Bilirubin 0.3 AST 41 H ALT 36 Alkaline Phosphatase 84 Troponin I < 0.020 Total Protein 6.5 Albumin 4.1 Globulin 2.4 Albumin/Globulin Ratio 1.7 Ur Collection Type Clean Catch Urine Color Yellow Urine Clarity Clear Urine pH 6.0 Ur Specific [place] 1.025 Urine Protein Trace Urine Glucose (UA) Negative Urine Ketones Negative Urine Blood 1+ A Urine Nitrite Negative Urine Bilirubin Negative Urine Urobilinogen (Auto) 2.0 Ur Leukocyte Esterase Positive Urine RBC 11 H Urine WBC 8 H Ur Squamous Epith Cells 4 Urine Bacteria None Ur Culture Indicated? Not Indicated Blood Type A Positive Antibody Screen NEGATIVE Crossmatch See Detail Blood Bank Wristband ID Yes 04/11/25 04:58 WBC 6.8 RBC 3.46 L Hgb 8.9 L Hct 29.6 L MCV 86 MCH 25.7 MCHC 30.1 L RDW Std Deviation 56.4 H Plt Count 215 Neut % (Auto) 69 Lymph % (Auto) 12 [place] % (Auto) 14 H Eos % (Auto) 3 Baso % (Auto) 2 Neut # (Auto) 4.7 Lymph # (Auto) 0.8 L [place] # (Auto) 0.9 H Eos # (Auto) 0.2 Baso # (Auto) 0.1 Immature Gran # (Auto) 0.03 H Absolute Nucleated RBC 0.00 Immature Gran % 0 Nucleated RBC % 0 PT INR APTT Sodium 148 H Potassium 4.0 Chloride 109 H Carbon Dioxide 34.3 H Anion Gap 5 L BUN 20 Creatinine 0.6 Estim Creat Clear Calc 61.1 eGFR > 60 BUN/Creatinine Ratio 33 H Glucose 92 Calculated Osmolality 296 H Calcium 8.5 Corrected Calcium 8.7 Magnesium 2.3 Iron TIBC Iron Saturation Unsat Iron Binding Total Bilirubin 0.5 AST 73 H ALT 56 H Alkaline Phosphatase 93 Troponin I Total Protein 6.1 Albumin 3.7 Globulin 2.4 Albumin/Globulin Ratio 1.5 Ur Collection Type Urine Color Urine Clarity Urine pH Ur Specific [place] Urine Protein Urine Glucose (UA) Urine Ketones Urine Blood Urine Nitrite Urine Bilirubin Urine Urobilinogen (Auto) Ur Leukocyte Esterase Urine RBC Urine WBC Ur Squamous Epith Cells Urine Bacteria Ur Culture Indicated? Blood Type Antibody Screen Crossmatch Blood Bank Wristband ID Quality Measures Quality Measures none Advance care planning discussed with:: patient and child Assessment & Plan Assessment Current Active Medications: Generic Name Dose Route Start Last Admin Trade Name Freq PRN Reason Stop Dose Admin Acetaminophen 650 mg 04/10/25 20:13 Acetaminophen 325 Mg Tablet PO 05/10/25 20:12 Q6H PRN Fever >100.4 Acetaminophen 650 mg 04/10/25 20:13 Acetaminophen 325 Mg Tablet PO 05/10/25 20:12 Q6H PRN PAIN SCALE 1-3 (mild Hydrocodone Bitart/Acetaminophen 1 tab 04/10/25 20:13 Hydrocodone/Apap 5/325 Tablet PO 04/15/25 20:12 Q4HR PRN PAIN SCALE 4-6 (Moderate Albuterol/Ipratropium 3 ml 04/10/25 20:13 Albuterol/Ipratropium (Duoneb) Rt Katalina 3 Ml Nebu INH 05/11/25 00:59 Q6HRRT PRN Wheezing or SOB Ondansetron HCl 4 mg 04/10/25 20:13 Ondansetron Inj 2 Mg/Ml Inj 2 Ml IVP 05/10/25 20:12 Q6H PRN NAUSEA OR VOMITING Protocol Pantoprazole Sodium 40 mg 04/10/25 21:00 04/11/25 07:29 Pantoprazole 40 Mg Tablet PO 05/10/25 20:59 Not Given BID CHANTE Plan 75-year-old female with past medical history of COPD on 2L O2 at home, restless leg syndrome, iron deficiency anemia, and lung cancer currently in remission was admitted on 04/10/2025 for for acute blood loss anemia likely in the setting of GI bleed. #Ground-level fall, likely multifactorial #Acute blood loss anemia #GI bleed Patient came in after having a ground-level fall 2 days ago when she started a new medication, Lyrica. Patient's symptoms mostly multifactorial in the setting of new medication as well as anemia which could be caused due to GI bleed as patient occult blood was positive and she has been having black tarry stools. Head CT, cervical spine CT, face CT did not show any fractures or acute hemorrhage Patient's hemoglobin was 7.1 on admission from 8.7 on 02/05/2025 Patient was transfused 1 unit PRBC in the ED, post Hgb 8.9 Plan: -Continue Protonix twice daily -NPO for EGD today -GI consulted, appreciate commendations -1 PRBC will be ready in the setting of hemoglobin drop -Will transfuse for hemoglobin less than 7 -Will continue to monitor -Physical therapy ordered #History of restless leg syndrome Patient has restless leg syndrome and was taking Lyrica, but this medication caused the patient to be dizzy therefore will discontinue. Patient was given ropinirole 1 mg in the ED for restless leg syndrome, patient states she has had good relief with this medication. -Will start ropinirole 1 mg HS #History of COPD on 2L of O2 at home #History of lung cancer currently in remission Chest x-ray did not show any pneumonia. Patient has some wheezing on examination but is at her home O2 baseline status. -DuoNebs q8h for wheezing DVT prophylaxis: SCDs GI prophylaxis: Pantoprazole 40 mg IV BID Diet: NPO [place]: None Lines: Peripheral IV Antibiotics: None CODE STATUS: FULL Reason for hospitalization: Ground-level fall, secondary to medication side effect and acute blood loss anemia secondary to GI bleed Patient plan of care was discussed with the attending physician, Dr. Huff. Fannie Calzada, PGY-2 Attending Provider Attestation/Addendum I have discussed and was present for the essential components of the history, physical examination, diagnosis, and treatment plan with the resident. I agree with the patient's care as documented by the resident and amended herein by me. Alex Huff DO. Patient seen and evaluated this AM. No acute events overnight, vital signs stable, patient afebrile. Hemoglobin stable at 8.9, CT head negative for any acute intracranial pathology. Will transfuse for hemoglobin less than 7, orthostatic vital signs pending, gastroenterology consulted, EGD pending, possible colonoscopy before discharge. The patient's fall she endorsed was from dizziness shortly after starting Lyrica which we will recommend she discontinue until following up with her primary care provider. Overall condition probably multifactorial from medication and possible GI bleed considering hemoglobin is rather low. Will continue to monitor closely while she is here. Although this document has been carefully reviewed, there may still be some phonetic and other typographical errors. These errors are purely grammatical due to imperfections in the software program and should not be construed in any way to compromise the substance of the patient's medical care during this visit.
--- NOTE | 2025-04-11 14:38 | PC.PT ---
Pt leaving room for EGD therefore deferred PT Eval to Saturday.
[2025-04-11] MEDS: NA SU/NAHCO3/KC/PEG (Golytely) 4,000 ML BTL 4000 ML PO (17:20)
[2025-04-11 19:44] LABS: Vitamin B12 527 pg/mL (211-911)
[2025-04-11] MEDS: PANTOPRAZOLE 40 MG TABLET PO (21:06)
[2025-04-11] MEDS: ALBUTEROL/IPRATROPIUM (Duoneb) RT SOL 3 ML NEBU INH (22:45)
[2025-04-12] VITALS (13 sets, daily range): BP systolic 115–136; BP diastolic 63–80; PULSE 64–99; RESP 16–28; TEMP 36.3–37.2; O2SAT 77–100
[2025-04-12] MEDS: ALBUTEROL/IPRATROPIUM (Duoneb) RT SOL 3 ML NEBU INH ×3 (06:06→18:58)
[2025-04-12 06:13] LABS: Basophils # (Auto) 0.1 Thou/mm3 (0.0-0.2); Basophils % (Auto) 1 % (0-2.5); Eosinophils # (Auto) 0.1 Thou/mm3 (0.0-0.5); Eosinophils % (Auto) 1 % (0-10); Hematocrit 27.3 % (36.0-46.0); Immature Granulocytes Auto 0.02 Thou/mm3 (0.00-0.00); Lymphocytes # (Auto) 0.7 Thou/mm3 (1.0-4.8); Lymphocytes % (Auto) 15 % (10-50); Mean Corpuscular HGB Conc 30.0 g/dl (31.0-37.0); Mean Corpuscular Hemoglobin 25.5 pg (25.0-35.0); Mean Corpuscular Volume 85 fL (80-100); Monocytes # (Auto) 0.5 Thou/mm3 (0.0-0.8); Monocytes % (Auto) 11 % (0-12); Neutrophils # (Auto) 3.6 Thou/mm3 (1.8-7.7); Neutrophils % (Auto) 72 % (37-80); Nucleated Red Blood Cell # 0.00 Thou/mm3 (0.00-0.00); Nucleated Red Blood Cell % 0 /100 WBC (0); Platelet Count 200 Thou/mm3 (140-440); RDW Standard Deviation 55.6 fL (36.4-46.3); Red Blood Count 3.22 Miln/mm3 (4.00-5.20); White Blood Count 5.0 Thou/mm3 (3.6-11.0)
[2025-04-12 06:27] LABS: Hemoglobin 8.2 g/dL (12.0-16.0)
[2025-04-12 06:36] LABS: Alanine Aminotransferase 50 U/L (10-49); Albumin, Serum 3.6 gm/dL (3.4-4.8); Albumin/Globulin Ratio 1.9 (1.2-2.2); Alkaline Phosphatase 83 U/L (46-116); Anion Gap 9 (7-16); Aspartate Amino Transferase 47 U/L (0-34); BUN/Creatinine Ratio 30 Ratio (12-20); Bilirubin,Total 0.6 mg/dL (0.3-1.2); Blood Urea Nitrogen 15 mg/dL (9-23); Calcium 8.8 mg/dL (8.3-10.6); Calcium (Corrected) 9.1 mg/dL (8.5-10.1); Carbon Dioxide 31.4 mMol/L (20.0-31.0); Chloride 104 mMol/L (98-107); Creatinine (Component) 0.5 mg/dL (0.6-1.3); Estimated Creatinine Clearance 73.3 mL/min (>60); Globulin 1.9 gm/dL (2.3-3.5); Glucose 72 mg/dL (74-106); Magnesium 2.1 mg/dL (1.6-2.6); Osmolality,Calculated 286 (275-295); Potassium 3.8 mMol/L (3.4-5.1); Sodium 144 mMol/L (136-145); Total Protein 5.5 gm/dL (5.7-8.2); eGFR > 60 See Note
[2025-04-12] MEDS: PANTOPRAZOLE 40 MG TABLET PO ×2 (08:42→20:04)
--- NOTE | 2025-04-12 09:16 | PC.SS ---
Follow up note: Colonoscopy pending.
--- NOTE | 2025-04-12 13:16 | PC.PT ---
Patient is currently on GoLytely for colonoscopy prep. Will defer PT eval until patient is off GoLytely. RN made aware.
[2025-04-12] MEDS: NA SU/NAHCO3/KC/PEG (Golytely) 4,000 ML BTL 4000 ML PO (14:27)
--- NOTE | 2025-04-12 15:38 | PD.RESPRO ---
Documentation for date of: 04/12/25 Subjective Subjective Interval history: No acute events overnight.?Patient seen and examined at bedside this AM. Labs and vitals were reviewed.?Hgb is stable at 8.2. Patient received EGD last night, which showed a single angiodysplastic lesion that was cauterized but otherwise normal findings. Therefore patient was proceeded with Golytely prep for colonoscopy. Patient is tolerating well, but not clear yet for colonoscopy, likely will continue into tomorrow. Per nursing, patient started feeling anxious this afternoon, patient visited at bedside and stated that her restless legs was acting up. Gave 1 dose of ropinirole.?Patient was also noted to be tachypneic, with slight wheezing on examination and desaturation requiring increase in supplemental O2 from 3 to 5L therefore CXR was ordered along with 1 hour saline nebulizer with albuterol. Review of systems otherwise negative except what is mentioned above. Exam Vital Signs Temp Pulse Resp BP Pulse Ox O2 Del Method O2 Flow Rate 98.0 F 64 18 135/63 H 100 Room Air 3 04/12/25 12:00 04/12/25 14:45 04/12/25 14:45 04/12/25 12:00 04/12/25 14:45 04/12/25 12:00 04/12/25 14:45 Narrative Exam Physical Exam General: Elderly female, awake and in no acute distress. Conversational and non-toxic appearing. HEENT: Left periorbital bruising and swelling, non-tender. Normocephalic, mucous membranes moist. Heart: Regular rate and rhythm, normal S1 and S2, soft systolic ejection murmur Lungs: Expiratory wheezes. Abdomen: Soft, nondistended, nontender, positive bowel sounds. ?No guarding or rebound tenderness. Neurologic: Alert and oriented x3, no gross neurological deficit, and patient able to move all 4 extremities. Extremities: No edema. Skin: Pale appearing Objective Labs 04/12/25 05:30 04/12/25 05:30 Labs: Laboratory Results - last 24 hr 04/10/25 04/12/25 15:43 05:30 WBC 5.0 RBC 3.22 L Hgb 8.2 L Hct 27.3 L MCV 85 MCH 25.5 MCHC 30.0 L RDW Std Deviation 55.6 H Plt Count 200 Neut % (Auto) 72 Lymph % (Auto) 15 [place] % (Auto) 11 Eos % (Auto) 1 Baso % (Auto) 1 Neut # (Auto) 3.6 Lymph # (Auto) 0.7 L [place] # (Auto) 0.5 Eos # (Auto) 0.1 Baso # (Auto) 0.1 Immature Gran # (Auto) 0.02 H Absolute Nucleated RBC 0.00 Immature Gran % 0 Nucleated RBC % 0 Sodium 144 Potassium 3.8 Chloride 104 Carbon Dioxide 31.4 H Anion Gap 9 BUN 15 Creatinine 0.5 L Estim Creat Clear Calc 73.3 eGFR > 60 BUN/Creatinine Ratio 30 H Glucose 72 L Calculated Osmolality 286 Calcium 8.8 Corrected Calcium 9.1 Magnesium 2.1 Total Bilirubin 0.6 AST 47 H ALT 50 H Alkaline Phosphatase 83 Total Protein 5.5 L Albumin 3.6 Globulin 1.9 L Albumin/Globulin Ratio 1.9 Vitamin B12 527 Quality Measures Quality Measures none Advance care planning discussed with:: patient Assessment & Plan Assessment Current Active Medications: Generic Name Dose Route Start Last Admin Trade Name Freq PRN Reason Stop Dose Admin Acetaminophen 650 mg 04/10/25 20:13 Acetaminophen 325 Mg Tablet PO 05/10/25 20:12 Q6H PRN Fever >100.4 Acetaminophen 650 mg 04/10/25 20:13 Acetaminophen 325 Mg Tablet PO 05/10/25 20:12 Q6H PRN PAIN SCALE 1-3 (mild Hydrocodone Bitart/Acetaminophen 1 tab 04/10/25 20:13 Hydrocodone/Apap 5/325 Tablet PO 04/15/25 20:12 Q4HR PRN PAIN SCALE 4-6 (Moderate Albuterol/Ipratropium 3 ml 04/11/25 23:00 04/12/25 14:44 Albuterol/Ipratropium (Duoneb) Rt [place] 3 Ml Nebu INH 05/11/25 22:59 3 ml Q8HRRT CHANTE Administration Lorazepam 0.5 mg 04/12/25 11:30 04/12/25 14:22 Lorazepam 0.5 Mg Tablet PO 04/17/25 11:29 0.5 mg BID PRN Administration Anxiety Ondansetron HCl 4 mg 04/10/25 20:13 Ondansetron Inj 2 Mg/Ml Inj 2 Ml IVP 05/10/25 20:12 Q6H PRN NAUSEA OR VOMITING Protocol Pantoprazole Sodium 40 mg 04/10/25 21:00 04/12/25 08:42 Pantoprazole 40 Mg Tablet PO 05/10/25 20:59 40 mg BID CHANTE Administration Ropinirole HCl 1 mg 04/11/25 21:00 04/11/25 21:06 Ropinirole Hcl 1 Mg Tablet PO 05/11/25 20:59 1 mg HS CHANTE Administration Plan 75-year-old female with past medical history of COPD on 2L O2 at home, restless leg syndrome, iron deficiency anemia, and lung cancer currently in remission was admitted on 04/10/2025 for for acute blood loss anemia likely in the setting of GI bleed. #Ground-level fall, likely multifactorial #Acute blood loss anemia #GI bleed #Angiodysplastic lesion in the duodenal bulb #Gastritis Patient came in after having a ground-level fall 2 days ago when she started a new medication, Lyrica. Patient's symptoms mostly multifactorial in the setting of new medication as well as anemia which could be caused due to GI bleed as patient occult blood was positive and she has been having black tarry stools. Head CT, cervical spine CT, face CT did not show any fractures or acute hemorrhage Patient's hemoglobin was 7.1 on admission from 8.7 on 02/05/2025 Patient was transfused 1 unit PRBC in the ED, post Hgb 8.9 EGD showed a single bleeding angiodysplastic lesion in the duodenal bulb that was cauterized but otherwise normal findings other than gastritis Plan: -Continue Protonix twice daily -Continue Golytely prep until cleared -GI following, appreciate recommendations -1 PRBC will be ready in the setting of hemoglobin drop -Will transfuse for hemoglobin less than 7 -Will continue to monitor -Physical therapy ordered #History of restless leg syndrome Patient has restless leg syndrome and was taking Lyrica, but this medication caused the patient to be dizzy therefore will discontinue. Patient was given ropinirole 1 mg in the ED for restless leg syndrome, patient states she has had good relief with this medication. -Continue ropinirole 1 mg HS #History of COPD on 2L of O2 at home #History of lung cancer currently in remission Chest x-ray did not show any pneumonia. Patient has some wheezing on examination but is at her home O2 baseline status. -DuoNebs q8h for wheezing -Patient given 1 hour breathing treatment with albuterol today -CXR today -If wheezing persists may consider short course of steroid DVT prophylaxis: SCDs GI prophylaxis: Pantoprazole 40 mg IV BID Diet: NPO [place]: None Lines: Peripheral IV Antibiotics: None CODE STATUS: FULL Reason for hospitalization: Ground-level fall, secondary to medication side effect and acute blood loss anemia secondary to GI bleed Patient plan of care was discussed with the attending physician, Dr. Huff. Fannie Calzada, PGY-2 Attending Provider Attestation/Addendum I have discussed and was present for the essential components of the history, physical examination, diagnosis, and treatment plan with the resident. I agree with the patient's care as documented by the resident and amended herein by me. Alex Huff, . Patient seen and evaluated this AM. No acute events overnight, vital signs stable, patient afebrile, slight dip in hemoglobin to 8.2 today, bicarb 31. EGD only significant for a duodenal angioplastic lesion which was cauterized, colonoscopy pending to reveal source of bleed. GI consulted, appreciate recommendations, will continue to monitor closely while she is here. If all goes well tonight, likely discharge tomorrow on 04/13. Although this document has been carefully reviewed, there may still be some phonetic and other typographical errors. These errors are purely grammatical due to imperfections in the software program and should not be construed in any way to compromise the substance of the patient's medical care during this visit.
--- NOTE | 2025-04-12 15:56 | XR_ITS ---
Examination: AP chest single view TECHNIQUE: AP portable upright chest single view Date and time: April 12, 2025 1603 hours Comparison April 10, 2025 INDICATIONS: Chest pain shortness of breath today. FINDINGS: Mild CHF. Moderate enlargement cardiac contour prominent vascular congestion and perihilar basilar edema Pneumonia versus poorly defined mass in the left upper lobe, please see the CT chest report February 04, 2025 Prominent osteopenia Small right pleural effusion IMPRESSION: Mild CHF Parenchymal disease in the left upper lobe, consider repeat CT chest postcontrast to compare with the February 04, 2025 exam
[2025-04-12] MEDS: SODIUM CHLORIDE RT SOL 0.9% 3 ML NEBU INH (16:10)
[2025-04-12] MEDS: ALBUTEROL RT 2.5 MG/0.5 ML NEBU INH (16:10)
--- NOTE | 2025-04-12 16:24 | PC.SS ---
SS met with patient regarding her d/c plan. Pt is alert/oriented. Pt was admitted for GI Bleed. Pt confirmed demographic and contact information is correct on facesheet. Pt resides alone but her son, Antonio stays with her on the weekends. Pt ambulates independently without assistance or DME. Pt is ok with all ADLs. Pt is currently on 2 liters of O2. Pt utilizes O2 at home from [facility]. Patient?s pharmacy of choice is. Pt named her dtr, Tamanna Solorio medical decision maker if she is unable. SS provided verbal choices for d/c to home or SNF. Patient?s choice is to return home upon d/c. Pt states her son, Antonio Gutierrez, phone# [phone] will provide transportation. D/C plan: Return home Next of Kin: Tamanna Osmin, daughter, phone# [phone] PCP: Dr. Mariee Address: Correct on facesheet
--- NOTE | 2025-04-12 16:41 | PD.IMPROG ---
Documentation for date of: 04/12/25 Subjective Subjective Interval history: Hemoglobin hematocrit 8.2 and 27.3 Exam Vital Signs Temp Pulse Resp BP Pulse Ox O2 Del Method O2 Flow Rate 97.4 F 87 18 136/80 H 99 Room Air 5 04/12/25 16:00 04/12/25 16:14 04/12/25 16:14 04/12/25 16:00 04/12/25 16:14 04/12/25 12:00 04/12/25 16:14 Objective Labs 04/12/25 05:30 04/12/25 05:30 Labs: Laboratory Results - last 24 hr 04/10/25 04/12/25 15:43 05:30 WBC 5.0 RBC 3.22 L Hgb 8.2 L Hct 27.3 L MCV 85 MCH 25.5 MCHC 30.0 L RDW Std Deviation 55.6 H Plt Count 200 Neut % (Auto) 72 Lymph % (Auto) 15 [place] % (Auto) 11 Eos % (Auto) 1 Baso % (Auto) 1 Neut # (Auto) 3.6 Lymph # (Auto) 0.7 L [place] # (Auto) 0.5 Eos # (Auto) 0.1 Baso # (Auto) 0.1 Immature Gran # (Auto) 0.02 H Absolute Nucleated RBC 0.00 Immature Gran % 0 Nucleated RBC % 0 Sodium 144 Potassium 3.8 Chloride 104 Carbon Dioxide 31.4 H Anion Gap 9 BUN 15 Creatinine 0.5 L Estim Creat Clear Calc 73.3 eGFR > 60 BUN/Creatinine Ratio 30 H Glucose 72 L Calculated Osmolality 286 Calcium 8.8 Corrected Calcium 9.1 Magnesium 2.1 Total Bilirubin 0.6 AST 47 H ALT 50 H Alkaline Phosphatase 83 Total Protein 5.5 L Albumin 3.6 Globulin 1.9 L Albumin/Globulin Ratio 1.9 Vitamin B12 527 Impressions Impression: Occult GI bleeding FOBT positive GoLytely prep to continue Colonoscopy tomorrow Assessment & Plan A&P Narrative Occult GI bleeding Hemoccult positive stool posthemorrhagic anemia plan fiberoptic esophagogastroduodenoscopy with possible biopsy possible therapeutic intervention under intravenous moderate sedation Consent obtained Procedure scheduled for tomorrow morning N.p.o. midnight tonight In case the upper endoscopy is negative we will consider doing a fibrotic colonoscopy prior to discharge Other medical problems include COPD on home oxygen 2 L nasal cannula Thank you very much for the opportunity to participate in the care of this patient Time Spent With Patient Time: Total time spent is greater than 50% in coordination of care (as documented) at patient's floor/unit and/or counseling patient:
--- NOTE | 2025-04-12 18:45 | PC.NURSE ---
Rapid response called d/t sob and low o2 sats. No chest pain reported by patient. Pt in bed laying aaox4. Oxygen interventions started immediately.
--- NOTE | 2025-04-12 18:57 | PC.NURSE ---
Pt currently on 9-10L NC sating 97% and RT at bedside completing breathing tx. Pt aaox4 with sob improving.
--- NOTE | 2025-04-12 18:59 | PC.RT ---
svn tx gicwn early due to [employer] called pt sob, and spo2 decreased to 78%
[2025-04-12] MEDS: FUROSEMIDE INJ 10 MG/ML 4ML VIAL 40 MG IVP (20:21)
[2025-04-13] VITALS (23 sets, daily range): BP systolic 118–190; BP diastolic 64–88; PULSE 69–96; RESP 12–33; TEMP 36.1–36.9; O2SAT 88–100; BMI 23.7
[2025-04-13] MEDS: ALBUTEROL/IPRATROPIUM (Duoneb) RT SOL 3 ML NEBU INH ×3 (06:38→22:03)
[2025-04-13 06:57] LABS: Basophils # (Auto) 0.1 Thou/mm3 (0.0-0.2); Basophils % (Auto) 1 % (0-2.5); Eosinophils # (Auto) 0.1 Thou/mm3 (0.0-0.5); Eosinophils % (Auto) 2 % (0-10); Hematocrit 29.3 % (36.0-46.0); Immature Granulocytes Auto 0.02 Thou/mm3 (0.00-0.00); Lymphocytes # (Auto) 0.6 Thou/mm3 (1.0-4.8); Lymphocytes % (Auto) 10 % (10-50); Mean Corpuscular HGB Conc 29.7 g/dl (31.0-37.0); Mean Corpuscular Hemoglobin 25.1 pg (25.0-35.0); Mean Corpuscular Volume 84 fL (80-100); Monocytes # (Auto) 0.7 Thou/mm3 (0.0-0.8); Monocytes % (Auto) 10 % (0-12); Neutrophils # (Auto) 5.0 Thou/mm3 (1.8-7.7); Neutrophils % (Auto) 77 % (37-80); Nucleated Red Blood Cell # 0.00 Thou/mm3 (0.00-0.00); Nucleated Red Blood Cell % 0 /100 WBC (0); Platelet Count 214 Thou/mm3 (140-440); RDW Standard Deviation 56.1 fL (36.4-46.3); Red Blood Count 3.47 Miln/mm3 (4.00-5.20); White Blood Count 6.5 Thou/mm3 (3.6-11.0)
[2025-04-13 07:02] LABS: Alanine Aminotransferase 41 U/L (10-49); Albumin, Serum 3.8 gm/dL (3.4-4.8); Albumin/Globulin Ratio 1.6 (1.2-2.2); Alkaline Phosphatase 86 U/L (46-116); Anion Gap 9 (7-16); Aspartate Amino Transferase 32 U/L (0-34); BUN/Creatinine Ratio 12 Ratio (12-20); Bilirubin,Total 0.6 mg/dL (0.3-1.2); Blood Urea Nitrogen 7 mg/dL (9-23); Calcium 8.6 mg/dL (8.3-10.6); Calcium (Corrected) 8.8 mg/dL (8.5-10.1); Carbon Dioxide > 40.0 mMol/L (20.0-31.0); Chloride 98 mMol/L (98-107); Creatinine (Component) 0.6 mg/dL (0.6-1.3); Estimated Creatinine Clearance 61.1 mL/min (>60); Globulin 2.4 gm/dL (2.3-3.5); Glucose 82 mg/dL (74-106); Magnesium 1.8 mg/dL (1.6-2.6); Osmolality,Calculated 289 (275-295); Potassium 3.0 mMol/L (3.4-5.1); Sodium 147 mMol/L (136-145); Total Protein 6.2 gm/dL (5.7-8.2); eGFR > 60 See Note
[2025-04-13 07:38] LABS: Hemoglobin 8.7 g/dL (12.0-16.0)
[2025-04-13] MEDS: PANTOPRAZOLE 40 MG TABLET PO ×2 (08:16→22:14)
[2025-04-13 10:08] LABS: Base Excess, Venous 15 (-3-3); O2 Saturation, Venous 101 % (96-97); PCO2, Venous 54 mmHg (36-56); PO2, Venous 157 mmHg (15-58); pH, Venous 7.48 (7.33-7.66)
--- NOTE | 2025-04-13 10:43 | CHAP ---
Patient was visited by a Spiritual Care Volunteer on 04/13/2025 between 0900 and 0930 and received comfort, encouragement and/or prayer.
--- NOTE | 2025-04-13 14:59 | PC.SS ---
Rounding note: patient is pending a colonoscopy.
--- NOTE | 2025-04-13 15:33 | PD.RESPRO ---
Documentation for date of: 04/13/25 Subjective Subjective Interval history: Patient is a 75 year old female with a past medical history of COPD on 2L, hisotry of pulmonary carcinoma, restless syndrome and iron deficiency. Patient was admitted overnight on 04/10/2025 secondary acute blood loss likely secondary to upper GI bleed with positive FOBT and concern for frequent mechanical falls. 04/13/2025: Overnight Lasix x 1 IV push administered secondary to crackles. Patient examined at bedside. Patient is actively working on completing [employer] for schedule colonoscopy with gastroenterology. Patient hematochezia or melena. Patient denied palpitation or dizziness upon standing. Denied fever chest pain overnight. Patient denied shortness of breath this morning or wheezing. Patient is scheduled for colonoscopy this evening, likely will be cleared out by then. Exam Vital Signs Temp Pulse Resp BP Pulse Ox O2 Del Method O2 Flow Rate 97.8 F 74 18 122/80 100 Nasal Cannula 1.5 04/13/25 12:00 04/13/25 14:23 04/13/25 14:23 04/13/25 12:00 04/13/25 14:23 04/13/25 12:04/13/25 14:23 Narrative Exam General Appearance: Alert & Oriented X3, well-nourished female who is lying in bed in no acute distress HEENT: Skull symmetrical and atraumatic. Conjunctivae pale pink and moist. Pupils equal, round, reactive to light and accommodation (PERRL). External ear without lesion or discharge. Straight, nares patient, mucosa pink, no discharge. No thyroid nodule appreciated. No cervical lymphadenopathy. Cardio: Normal Rate and Rhythm with S1 and S2 heart sounds. No murmurs or extra heart sounds auscultated. No bruits on carotid auscultation. No peripheral edema or cyanosis. Lungs: Symmetric with good expansion. Chest and back non-tender. Breath sounds vesicular without crackles, wheezing or rhonchi Abdomen: Non-tender, Non-distended, Normal Reactive Bowel Sounds Neuro: Alert, cooperative, oriented to person, place, and time. Speech clear. CN grossly intact. Upper motor strength 5/5 and Lower motor strength 5/5. Sensation intact. Objective Labs 04/13/25 05:30 04/13/25 05:30 Labs: Laboratory Results - last 24 hr 04/13/25 04/13/25 05:30 09:50 WBC 6.5 RBC 3.47 L Hgb 8.7 L Hct 29.3 L MCV 84 MCH 25.1 MCHC 29.7 L RDW Std Deviation 56.1 H Plt Count 214 Neut % (Auto) 77 Lymph % (Auto) 10 [place] % (Auto) 10 Eos % (Auto) 2 Baso % (Auto) 1 Neut # (Auto) 5.0 Lymph # (Auto) 0.6 L [place] # (Auto) 0.7 Eos # (Auto) 0.1 Baso # (Auto) 0.1 Immature Gran # (Auto) 0.02 H Absolute Nucleated RBC 0.00 Immature Gran % 0 Nucleated RBC % 0 VBG pH 7.48 VBG pCO2 54 VBG pO2 157 H VBG O2 Sat (Elizabeth) 101 H VBG Base Excess 15 H Sodium 147 H Potassium 3.0 L D Chloride 98 Carbon Dioxide > 40.0 H Anion Gap 9 BUN 7 L Creatinine 0.6 Estim Creat Clear Calc 61.1 eGFR > 60 BUN/Creatinine Ratio 12 Glucose 82 Calculated Osmolality 289 Calcium 8.6 Corrected Calcium 8.8 Magnesium 1.8 Total Bilirubin 0.6 AST 32 ALT 41 Alkaline Phosphatase 86 Total Protein 6.2 Albumin 3.8 Globulin 2.4 Albumin/Globulin Ratio 1.6 ABG Interpretation ABG results: 04/13/25 09:50 VBG pH 7.48 VBG pCO2 54 VBG pO2 157 H VBG Base Excess 15 H Quality Measures Quality Measures none Advance care planning discussed with:: patient Assessment & Plan Assessment Current Active Medications: Generic Name Dose Route Start Last Admin Trade Name Freq PRN Reason Stop Dose Admin Acetaminophen 650 mg 04/10/25 20:13 Acetaminophen 325 Mg Tablet PO 05/10/25 20:12 Q6H PRN Fever >100.4 Acetaminophen 650 mg 04/10/25 20:13 Acetaminophen 325 Mg Tablet PO 05/10/25 20:12 Q6H PRN PAIN SCALE 1-3 (mild Hydrocodone Bitart/Acetaminophen 1 tab 04/10/25 20:13 Hydrocodone/Apap 5/325 Tablet PO 04/15/25 20:12 Q4HR PRN PAIN SCALE 4-6 (Moderate Albuterol/Ipratropium 3 ml 04/11/25 23:00 04/13/25 14:22 Albuterol/Ipratropium (Duoneb) Rt Katalina 3 Ml Nebu INH 05/11/25 22:59 3 ml Q8HRRT CHANTE Administration Lorazepam 1 mg 04/12/25 20:31 Lorazepam 0.5 Mg Tablet PO 04/17/25 11:29 BID PRN Anxiety Ondansetron HCl 4 mg 04/10/25 20:13 Ondansetron Inj 2 Mg/Ml Inj 2 Ml IVP 05/10/25 20:12 Q6H PRN NAUSEA OR VOMITING Protocol Pantoprazole Sodium 40 mg 04/10/25 21:00 04/13/25 08:16 Pantoprazole 40 Mg Tablet PO 05/10/25 20:59 40 mg BID CHANTE Administration Ropinirole HCl 1 mg 04/11/25 21:00 04/12/25 20:04 Ropinirole Hcl 1 Mg Tablet PO 05/11/25 20:59 1 mg HS CHANTE Administration Sodium Chloride 3 ml 04/12/25 15:59 Sodium Chloride Rt Katalina 0.9% 3 Ml Nebu INH 05/12/25 15:58 PRN PRN SOLN Plan Patient is a 75 year old female with a past medical history of COPD on 2L, hisotry of pulmonary carcinoma, restless syndrome and iron deficiency. Patient was admitted overnight on 04/10/2025 secondary acute blood loss likely secondary to upper GI bleed with positive FOBT and concern for frequent mechanical falls. #Ground level Mechanical fall #Acute Blood Loss Anemia #Upper GI Bleed Pateint presented with a mechanical fall with acute on cronic blood loss likley microcytic anemia. EGD (04/11/2025) noted for gastritis. Colonoscopy (04/13/2025) noted for hemorroids, diverticula, and large polyp in the prosimal colon that appears sessile. Given past medical history of rest less syndrome, this could be just iron deficiency as there is no active bleeding Iron Panel: Iron <2, TIBC 378, Iron Sat 0%, Unsat Iron 376 Plan -Follow up wiht Dr. Pritchett in outpatinet setting in two weeks -D/C Prontonix BID-->oral Famotide -Patinet would benefit form Iron every other day. -Continue to monitor Hgb #Metabolic Alkalosis, worsended #Acute Diarrhea Patient presented with increased serum bicarbonate with a slight metabolic alkalosis on ph VBG now bicarb >40. This may be secondary to antacid use and worsened by lasix IV X 1 given. Less likely secondary to diarrhea as this would cause metabolic acisosis with decreased bicarbonate. VBG, noted to have increased pH 7.48-mild increase Plan -Plan continue to trend serum Bicarbonte -Continue to trend Bicarbo #COPD Patient home medication include albuterol and trelegy. Plan -Consider Duonebs #Rest less syndrome Pramipexole may benefit patinet but iron replection may also improve overall symptoms and acute on chronic losses. #History of Pulmonary Carcinoma Health Maintenance: Disp: Pt is currently admitted to floors for further management of acute on chronic anemia, awaiting colonoscopy, likely discharge in the next 24 hours. FEN: NPO-->transition to regular diet DVT: Compression Code: Full Code Attending Provider Attestation/Addendum I have discussed and was present for the essential components of the history, physical examination, diagnosis, and treatment plan with the resident. I agree with the patient's care as documented by the resident and amended herein by me. Alex Huff, DO. Pending colonoscopy, the patient did finish second bottle of GoLytely, her stools are clear at this point per nursing staff, GI notified. Likely DC tomorrow on 04/14 pending results. Will continue to monitor closely, replete electrolytes as necessary otherwise the patient is doing very well. Although this document has been carefully reviewed, there may still be some phonetic and other typographical errors. These errors are purely grammatical due to imperfections in the software program and should not be construed in any way to compromise the substance of the patient's medical care during this visit.
--- NOTE | 2025-04-13 19:07 | SUR.PHASEI ---
received pt and report from TRINIDAD Richey. Pt drowsy but easlily awoken. Pt alert to self and place. vss. IV x2 intact, redness noted to both sites, no s/s of infiltration or infection. Bruising noted left eye, pt states she fell d/t a new medication. Abd soft on palpation, pt denies any pain
--- NOTE | 2025-04-13 19:35 | SUR.PHASEI ---
pt recovering well, vss, no distress noted. Pt denies any pain. Pt aware, a&o to self and place. IV remains in the same condition as upon receipt of the pt, no infiltration or s/s of infection noted. Report given to TRINIDAD Savage. Pt ready for transport
[2025-04-14] VITALS: BP 140/73; PULSE 89; RESP 18; TEMP 36.2; O2SAT 95
[2025-04-14 04:00] VITALS: BP 125/73; PULSE 75; RESP 16; TEMP 36.1; O2SAT 98
[2025-04-14] MEDS: ALBUTEROL/IPRATROPIUM (Duoneb) RT SOL 3 ML NEBU INH ×2 (06:37→14:54)
[2025-04-14 06:39] VITALS: PULSE 69; PULSE 72; RESP 18; O2SAT 100; O2SAT 95
[2025-04-14 08:00] VITALS: BP 115/72; PULSE 84; RESP 17; TEMP 36.7; O2SAT 93
[2025-04-14] MEDS: PANTOPRAZOLE 40 MG TABLET PO (08:16)
[2025-04-14 10:20] LABS: Basophils # (Auto) 0.1 Thou/mm3 (0.0-0.2); Basophils % (Auto) 1 % (0-2.5); Eosinophils # (Auto) 0.2 Thou/mm3 (0.0-0.5); Eosinophils % (Auto) 3 % (0-10); Hematocrit 29.6 % (36.0-46.0); Hemoglobin 9.0 g/dL (12.0-16.0); Immature Granulocytes Auto 0.02 Thou/mm3 (0.00-0.00); Lymphocytes # (Auto) 0.5 Thou/mm3 (1.0-4.8); Lymphocytes % (Auto) 8 % (10-50); Mean Corpuscular HGB Conc 30.4 g/dl (31.0-37.0); Mean Corpuscular Hemoglobin 25.2 pg (25.0-35.0); Mean Corpuscular Volume 83 fL (80-100); Monocytes # (Auto) 0.6 Thou/mm3 (0.0-0.8); Monocytes % (Auto) 9 % (0-12); Neutrophils # (Auto) 4.9 Thou/mm3 (1.8-7.7); Neutrophils % (Auto) 79 % (37-80); Nucleated Red Blood Cell # 0.00 Thou/mm3 (0.00-0.00); Nucleated Red Blood Cell % 0 /100 WBC (0); Platelet Count 220 Thou/mm3 (140-440); RDW Standard Deviation 56.1 fL (36.4-46.3); Red Blood Count 3.57 Miln/mm3 (4.00-5.20); White Blood Count 6.2 Thou/mm3 (3.6-11.0)
[2025-04-14 12:00] VITALS: BP 120/72; PULSE 78; RESP 16; TEMP 36.4; O2SAT 94
--- NOTE | 2025-04-14 12:22 | PC.SS ---
Addendum entered by CHRISTIANO Guevara 04/14/25 16:21: Rounding note: patient to d/c home today. Original Note: SS update: Chuckie from PT informed the patient is independent. No needs.
--- NOTE | 2025-04-14 12:31 | ESPR_ITS ---
Documentation for date of: 04/14/25 Subjective Subjective Interval history: Hemoglobin hematocrit 9.0 and 29.6 Exam Vital Signs Temp Pulse Resp BP Pulse Ox O2 Del Method O2 Flow Rate 98.0 F 84 17 115/72 93 L Nasal Cannula 2 04/14/25 08:00 04/14/25 08:00 04/14/25 08:00 04/14/25 08:00 04/14/25 08:00 04/14/25 08:00 04/14/25 08:00 Objective Labs 04/14/25 09:52 04/13/25 05:30 Labs: Laboratory Results - last 24 hr 04/10/25 04/14/25 15:43 09:52 WBC 6.2 RBC 3.57 L Hgb 9.0 L Hct 29.6 L MCV 83 MCH 25.2 MCHC 30.4 L RDW Std Deviation 56.1 H Plt Count 220 Neut % (Auto) 79 Lymph % (Auto) 8 L [place] % (Auto) 9 Eos % (Auto) 3 Baso % (Auto) 1 Neut # (Auto) 4.9 Lymph # (Auto) 0.5 L [place] # (Auto) 0.6 Eos # (Auto) 0.2 Baso # (Auto) 0.1 Immature Gran # (Auto) 0.02 H Absolute Nucleated RBC 0.00 Immature Gran % 0 Nucleated RBC % 0 Crossmatch See Detail Impressions Impression: Colonic polyps status post endoscopic resection anemia blood loss plan Outpatient follow-up ABG Interpretation ABG results: 04/13/25 09:50 VBG pH 7.48 VBG pCO2 54 VBG pO2 157 H VBG Base Excess 15 H Assessment & Plan A&P Narrative Occult GI bleeding Hemoccult positive stool posthemorrhagic anemia plan fiberoptic esophagogastroduodenoscopy with possible biopsy possible therapeutic intervention under intravenous moderate sedation Consent obtained Procedure scheduled for tomorrow morning N.p.o. midnight tonight In case the upper endoscopy is negative we will consider doing a fibrotic colonoscopy prior to discharge Other medical problems include COPD on home oxygen 2 L nasal cannula Thank you very much for the opportunity to participate in the care of this patient Time Spent With Patient Time: Total time spent is greater than 50% in coordination of care (as documented) at patient's floor/unit and/or counseling patient:
--- NOTE | 2025-04-14 13:36 | PC.PT ---
PT eval only. Patient is safe to ambulate to the bathroom with her O2, no AD, and 1 staff assist. RN made aware.
[2025-04-14 14:55] VITALS: PULSE 85; RESP 18; O2SAT 98
--- NOTE | 2025-04-14 16:05 | PD.RESDS ---
Planned Discharge Date 04/14/25 DS: Providers Provider Date of admission: 04/10/25 20:13 Primary care physician: Marnie Mariee MD Admitting Provider: Clifford Chaudhary MD Attending Provider on Admission: Kelby Huff DO Consults: 04/10/25 18:04 Consult to Gastroenterology Stat Comment: Upper GI bleed Consulting Provider: Alexia Pritchett 04/13/25 08:00 Referral Physical Therapy Routine Comment: Physician Instructions: Attending Provider on DC: Makenna Castro MD Discharging Provider: Makenna Castro MD DS: Diagnosis Problem List Completed Was Problem List Reviewed/Reconciled?: Yes Hospital Course Hospital Course Hospital course: Patient is a 75 year old female with a past medical history of COPD on 2L, history of pulmonary carcinoma, restless leg syndrome and iron deficiency. Patient was admitted overnight on 04/10/2025 secondary acute blood loss likely secondary to upper GI bleed with positive FOBT and concern for frequent mechanical falls. Patient now s/p colonoscopy noted for hemorrhoids and multiple large diverticula. Follow up with Dr. Pritchett, journeyman press operator for biopsy results of large polpy, within 2 weeks after discharge. Initially came in afebrile and normotensive. Initial labs were 11 for anemia (Hgb 7.1 from 8.7 on 02/05/2025), metabolic alkalosis, and fecal occult blood positive. Initial imaging included shows x-ray which showed moderate enlargement of the left ventricle, cervical spine CT along with the CT and head CT which all did not show any hemorrhage or any acute fractures, but did show some soft tissue swelling left frontal skull and exterior to the left optic globe. #Ground-level fall #Acute blood loss anemia, stable #GI bleed, resolved #Hemorroids #Diverticula #Single large polyp s/p biopsy #Metabolic Alkalosis, improved #Acute Diarrhea #COPD #Rest less leg syndrome #history of pulmonary carcinoma Discharge Instructions: - Take all medication as prescribed. -Hold Pramipexole until you follow up with your primary care provider. Patient has anemia and restless syndrome, may benefit from Iron tablets in outpatient setting. - Please follow-up with Dr. Pritchett within 2 weeks of discharge, for biopsy results -Please follow up with your primary care provider within one week of discharge -If your symptoms worsen,please seek immediate medical attention and return to your nearest emergency room -If you do not have a primary care provider, you may follow up at the [facility] at [facility] [address], [place] [address], Safe to discharge home. - The patient's plan was discussed with attending Dr. Daria Castro MD PGY2 Internal Medicine Time Spent with Patient Time attestation: Total time spent providing and/or coordinating discharge services: at least 30 minutes of care and coordiantion Time spent: Greater than 30 minutes Exam Vital Signs Temp Pulse Resp BP Pulse Ox O2 Del Method O2 Flow Rate 97.5 F 85 18 120/72 98 Nasal Cannula 2 04/14/25 12:00 04/14/25 14:55 04/14/25 14:55 04/14/25 12:00 04/14/25 14:55 04/14/25 12:00 04/14/25 14:55 Narrative Exam General Appearance: Alert & Oriented X3, well-nourished female who is lying in bed in no acute distress HEENT: Skull symmetrical and atraumatic. Conjunctivae pale pink and moist. Pupils equal, round, reactive to light and accommodation (PERRL). External ear without lesion or discharge. Straight, nares patient, mucosa pink, no discharge. No thyroid nodule appreciated. No cervical lymphadenopathy. Cardio: Normal Rate and Rhythm with S1 and S2 heart sounds. No murmurs or extra heart sounds auscultated. No bruits on carotid auscultation. No peripheral edema or cyanosis. Lungs: Symmetric with good expansion. Chest and back non-tender. Breath sounds vesicular without crackles, wheezing or rhonchi Abdomen: Non-tender, Non-distended, Normal Reactive Bowel Sounds Neuro: Alert, cooperative, oriented to person, place, and time. Speech clear. CN grossly intact. Upper motor strength 5/5 and Lower motor strength 5/5. Sensation intact. Discharge Plan Plan Patient Disposition: HOME (Self Care) Care Plan Goals: - Take all medication as prescribed. -Hold Pramipexole until you follow up with your primary care provider. Patient has anemia and restless syndrome, may benefit from Iron tablets in outpatient setting. - Please follow-up with Dr. Pritchett within 2 weeks of discharge, for biopsy results -Please follow up with your primary care provider within one week of discharge -If your symptoms worsen,please seek immediate medical attention and return to your nearest emergency room -If you do not have a primary care provider, you may follow up at the [facility] at [address] [place] [address] [address], [place] [address], Prescriptions/Referrals Prescriptions/Med Rec: Continued lorazepam 0.5 mg tablet 1 mg PO Q12H PRN (Reason: anxiety) Patient Comments: take 1 tablet by mouth twice a day if needed for anxiety maximum daily dose of 2 albuterol sulfate 90 mcg/actuation HFA aerosol inhaler 2 inh inhalation Q4H PRN (Reason: copd) Patient Comments: INHALE 2 PUFFS BY MOUTH EVERY 4 HOURS NEEDED FOR SHORTNESS OF BREATH escitalopram oxalate 10 mg tablet 20 mg PO QDAY Patient Comments: take 1 tablet by mouth once daily for anxiety roflumilast 250 mcg tablet 250 mcg PO HS Patient Comments: take 1 tablet by mouth at bedtime Trelegy Ellipta 200-62.5-25 mcg blister with device 1 inh INHALATION Q24H Patient Comments: USE 1 INHALATION BY MOUTH DAILY ondansetron HCl 4 mg tablet 4 mg PO PRN Held pramipexole 0.5 mg tablet 0.5 mg PO BID Qty: 30 0RF Hold Instructions: Resume on 04/23/25. Please hold pramipexole until you see your primary care provider Referrals: Alexia Pritchett MD [Physician] - Marnie Mariee MD [Primary Care Provider] - Patient/Caregiver Discharge Instructions Discharge Activity: activity as tolerated Education Materials: Colonoscopy Print Language: Emirati Stand Alone Forms: Elvira Award Info., Patient Portal Info Letter Discharge Order Discharge Orders: Discharge (Routine); Ordered 04/14/25 Ordered By: Lewis Donohue Quality Discharge Quality Measures VTE prophylaxis Attestestation Attestation I have discussed and was present for the essential components of the discharge history, physical examination, diagnosis, and discharge treatment plan with the resident. I agree with the patient's discharge care as documented by the resident and amended herein by me. Alex Hernandezgle, DO. No obvious signs of bleeding found with EGD and colonoscopy, biopsies were performed, patient can follow-up with Dr. Pritchett in 2 weeks for biopsy results. Hemoglobin had up trended and was 9 on day of discharge. Patient was stable, afebrile, tolerating p.o. intake and ambulatory at time of discharge home. The patient understood all discharge instructions, all questions were answered satisfactorily. The patient was instructed to return to the Emergency Department is symptoms worsened or persisted. Although this document has been carefully reviewed, there may still be some phonetic and other typographical errors. These errors are purely grammatical due to imperfections in the software program and should not be construed in any way to compromise the substance of the patient's medical care during this visit.
== END 2025-04-14 16:33 | disposition home or self-care (01) | DRG 378 ==
LOC: SERX 19:49 → SERHOLD 20:27 → S3NX 21:53
PROVIDERS: Nurse Practitioner Family; Specialist; Student in an Organized Health Care Education/Training Program; Admitting Provider Internal Medicine; PCP Student in an Organized Health Care Education/Training Program; Visit Provider Student in an Organized Health Care Education/Training Program
PROC: 0W3P8ZZ Control Bleeding in Gastrointestinal Tract, Via Natural or Artificial Opening Endoscopic (ICD-10-PCS; CPT 43239; principal; 2025-04-11 15:45)
PROC: 0DJD8ZZ Inspection of Lower Intestinal Tract, Via Natural or Artificial Opening Endoscopic (ICD-10-PCS; CPT 45378; principal; 2025-04-13 12:30)
DX: K31.811 Angiodysplasia of stomach and duodenum with bleeding (principal); D62 Acute posthemorrhagic anemia; E87.3 Alkalosis; K63.5 Polyp of colon; J44.9 Chronic obstructive pulmonary disease, unspecified; K29.71 Gastritis, unspecified, with bleeding; G25.81 Restless legs syndrome; S00.12XA Contusion of left eyelid and periocular area, initial encounter; R29.6 Repeated falls; Z85.118 Personal history of other malignant neoplasm of bronchus and lung; Z99.81 Dependence on supplemental oxygen; W18.30XA Fall on same level, unspecified, initial encounter; R19.7 Diarrhea, unspecified; S00.83XA Contusion of other part of head, initial encounter; F41.9 Anxiety disorder, unspecified; E61.1 Iron deficiency; G62.9 Polyneuropathy, unspecified; Z88.8 Allergy status to other drugs, medicaments and biological substances; K57.30 Diverticulosis of large intestine without perforation or abscess without bleeding
CPT/HCPCS: 36415; 36430; 36600; 70450; 70486; 71045; 72125; 80053; 81001; 82607; 82803; 83540; 83550; 83605; 83735; 84484; 85014; 85018; 85025; 85610; 85730; 86850; 86900; 86901; 86923; 87811; 93005; 94640; 94762; 96374; 97162; 99285; A9270; J1200; J1938; J2250; J2470; J3010; P9016